=== PATIENT | male | born 1970 | race Caucasian/White ===

== ENCOUNTER 2016-09-03 15:38 | Observation (INO) ==
[2016-09-03] MEDS ORDERED: *HR* LORazepam 2 MG/ML VIAL IVP ONE ×2 (16:27→18:56)
--- NOTE | 2016-09-03 16:34 | Emergency Department Note ---
Addendum entered and electronically signed by Sherly Fine DO 09/03/16 19:11: I spoke with hospitalist Dr. Younger who states he refuses the admission. He will come see the patient down in the emergency department and discharge him himself. Original Note: Disposition Clinical Impression: Acute anxiety Chest pain Qualifiers: Chest pain type: precordial pain Qualified Code(s): R07.2 - Precordial pain Disposition: Admitted As Inpatient Condition: Fair Time of Disposition: 18:56 General Adult HPI - General Chief complaint: ED Psychiatric Symptoms Stated complaint: Panic attack, SOB Time Seen by Provider: 09/03/16 16:02 Source: patient Mode of arrival: ambulatory Limitations: no limitations Nursing Notes Reviewed: Yes Vital Signs Reviewed: Yes - History of Present Illness HPI Narrative: Patient is a 46-year-old male who presents to [facility] ED with a chief complaint of panic attacks since this morning. States he had a few episodes of vomiting early this morning and defecated himself. He woke up around 9 AM and started having the panic attack. He feels shortness of breath along with chest pressure. He has intermittent chest pains that are sharp and stabbing in nature. Denies any prior cardiac history. Has had a nuclear stress test within the last year that was normal. Past medical history significant for type 2 diabetes [id number], morbid obesity, hypertension, hyperlipidemia. The patient states he also has burning in his feet from neuropathy. However he was cleaning the floor with [place] and feels that he may have stepped into the [place] which could be contributing to the burning as well. Patient states he does have some nausea, no further vomiting today. Patient states his panic attacks usually only lasts for approximately 20 minutes at the most though this one has lasted for hours. Onset (ago): hour(s) Location: chest Radiation: non-radiation Pain Severity: moderate Pain Scale: 0 Quality: stabbing Consistency: intermittent Improves with: nothing Worsens with: nothing Associated symptoms: Reports: chest pain, nausea/vomiting, shortness of breath. Denies: cough Treatments Prior to Arrival: none - Related Data Home Medications Medication Instructions Recorded Confirmed Acyclovir [Zovirax] 400 mg PO BID PRN 06/12/15 09/03/16 Albuterol Sulfate [Proair Hfa] 2 puff IH Q4H PRN 06/12/15 09/03/16 Benztropine [Cogentin] 0.5 mg PO BID 06/12/15 09/03/16 Canagliflozin [Invokana] 300 mg PO QAM 06/12/15 09/03/16 Gabapentin [Neurontin] 600 mg PO TID 06/12/15 09/03/16 Glimepiride [Amaryl] 8 mg PO QAM 06/12/15 09/03/16 Metformin HCl [Glucophage] 1,000 mg PO BID 06/12/15 09/03/16 Pantoprazole Sodium [Protonix] 20 mg PO QPM 06/12/15 09/03/16 Ropinirole HCl [Requip] 8 mg PO HS 06/12/15 09/03/16 diazePAM [Valium] 5 mg PO DAILY PRN 06/12/15 09/03/16 Aspirin 81 mg PO DAILY 06/23/16 09/03/16 Betamethasone Rekha 0.1% Crm 1 appl TP BID 06/23/16 09/03/16 [Valisone 0.1%] Ezetimibe [Zetia] 10 mg PO DAILY 06/23/16 09/03/16 Fluocinolone Acetonide [Capex 1 appl TP DAILY PRN 06/23/16 09/03/16 Shampoo] Furosemide [Lasix] 40 mg PO DAILY 06/23/16 09/03/16 Loratadine [Allergy Relief] 10 mg PO DAILY 06/23/16 09/03/16 Losartan [Cozaar] 25 mg PO DAILY 06/23/16 09/03/16 Potassium Chloride [Klor-Con 10] 10 meq PO BID 06/23/16 09/03/16 Ziprasidone HCl [Geodon] 40 mg PO QPM 06/23/16 09/03/16 Meloxicam [Mobic] 15 mg PO DAILY 09/03/16 09/03/16 Ziprasidone HCl [Geodon] 20 mg PO QAM 09/03/16 09/03/16 Allergies Allergy/AdvReac Type Severity Reaction Status Date / Time lisinopril AdvReac Cough Verified 06/23/16 08:38 All systems ED: reviewed and negative except as stated. Past Medical History - Past Medical History Attestation: Yes The following information was validated with the patient. Source: patient Medical history: Reports: diabetes, hyperlipidemia, hypertension, kidney stones Surgical history: Reports: other Psychiatric history: Reports: anxiety, bipolar, depression - Social History Smoking Status: Former smoker Smokeless Tobacco Status: No Alcohol use: Reports: rarely, recent Drug use: Reports: none Physical Exam - General Limitations: no limitations General appearance: alert, in no apparent distress - Head Head exam: atraumatic, normocephalic, normal inspection - Eye Eye exam: Present: normal appearance, PERRL, EOMI - ENT ENT exam: normal exam, normal oropharynx, mucous membranes moist - Neck Neck exam: Present: normal inspection, full ROM, trachea midline - Chest Chest inspection: Present: normal inspection, symmetric chest wall rise - Respiratory Respiratory exam: Present: normal lung sounds bilaterally - Cardiovascular Cardiovascular exam: Present: normal rhythm, tachycardia, normal heart sounds - Abdominal Exam Abdominal exam: Present: soft, Non-Tender. Absent: tenderness, distention, guarding, rebound, rigidity - Extremities Exam Extremities exam: Present: normal inspection, full ROM. Absent: tenderness, pedal edema - Back Exam Back exam: Present: normal inspection, full ROM. Absent: tenderness - Neurological Exam Neurological exam: Present: alert, oriented X3 - Psychiatric Psychiatric exam: Present: normal affect, normal mood - Skin Skin exam: Present: warm, dry, intact, normal color Course Course Narrative: Patient seen and examined. Patient is very anxious and has some hyperventilation. We will give him 1 mg of Ativan and reassess. Due to his symptoms of chest pressure and shortness of breath and has multiple cardiac risk factors, we will do a cardiac workup. - Reevaluation(s) Reevaluation #1: Patient has continued to feel anxious. Had onset of chest pain again feels heaviness in his chest. We will give a dose of nitroglycerin and recheck an EKG. I spoke with patient about possible admission for cardiac workup. The patient did have a recent stress test 2 months ago, however has never had a heart catheterization. He does have multiple risk factors for coronary artery disease including hyperlipidemia, type 2 diabetes, hypertension. Patient agrees with this plan. Time: 18:52 Reevaluation #2: I spoke with hospitalist Meeta Badillo who would like us to talk with cardiology. I spoke with pipe stem repairer Dr. Jung who states they will see the patient in consult tomorrow. Patient has been admitted to hospitalist service. Time: 19:07 Vital Signs Temperature 98.3 F 09/03/16 15:56 Pulse Rate 108 09/03/16 15:56 Respiratory Rate 24 09/03/16 15:56 Blood Pressure 138/81 09/03/16 15:56 O2 Sat by Pulse Oximetry 97 09/03/16 15:56 Temperature 98.6 F 09/04/16 02:34 Pulse Rate 93 09/04/16 02:34 Respiratory Rate 18 09/04/16 02:34 Blood Pressure 122/69 09/04/16 02:34 O2 Sat by Pulse Oximetry 93 09/04/16 02:34 Oxygen Delivery Oxygen Delivery Nasal Cannula Medical Decision Making - Medical Records Medical records reviewed: Yes I reviewed the patient's medical records. - Lab Data Lab results reviewed: Yes I reviewed the patient's lab results. Result diagrams: 09/04/16 03:13 09/04/16 03:13 Lab Results 09/03/16 09/03/16 09/03/16 Range/Units 16:59 16:59 16:59 WBC 9.1 (4.3-11.1) K/mcL RBC 4.52 (4.19-5.50) M/mcL Hgb 13.8 (12.9-16.9) g/dL Hct 39.9 (37.5-50.1) % MCV 88.3 (83.0-100.0) fL MCH 30.5 (28.0-33.3) pg MCHC 34.6 (31.6-35.5) g/dL RDW 13.1 (11.5-14.5) % Plt Count 274 (140-400) K/mcL MPV 8.2 L (9.4-12.4) fL Immature Gran % 1.3 (0-4) % Seg Neutrophils % 71.9 % Lymphocytes % 18.1 % Monocytes % 7.8 % Eosinophils % 0.6 % Basophils % 0.3 % Neutrophils # 6.5 (1.6-8.9) K/mcL Lymphocytes # 1.6 (0.6-4.6) K/mcL Monocytes # 0.7 (0.0-1.3) K/mcL Eosinophils # 0.1 (0.0-0.6) K/mcL Basophils # 0.0 (0.0-0.2) K/mcL Immature Plt Fraction 1.0 L (1.1-6.1) % Sodium 136 (136-145) mEq/L Potassium 3.4 L (3.5-4.5) mEq/L Chloride 103 (98-109) mEq/L Carbon Dioxide 18 L (19-29) mEq/L BUN 18 (8-26) mg/dL Creatinine 1.01 (0.72-1.25) mg/dL Est GFR ( Amer) > 60 (> 60) Est GFR (Non-Af Amer) > 60 (> 60) BUN/Creatinine Ratio 18 (6-26) Glucose 177 H (70-99) mg/dL Calculated Osmolality 288 (280-300) Calcium 9.4 (8.6-10.8) mg/dL Troponin I 0.00 (0-0.03) ng/mL - Radiology Data Radiology results reviewed: Yes I reviewed the patient's radiology results. Chest X-Ray 09/03/16 16:28 IMPRESSION: No acute cardiopulmonary process. D/ / 09/03/2016 18:06:11 Floyd Lazcano MD / [facility] Interpreting Provider: Floyd Lazcano MD - EKG Data EKG #1 EKG attestation: Yes I reviewed and interpreted this EKG. EKG results narrative: EKG done at 1641 shows normal sinus rhythm with a rate of [address] elevation or depression. Poor wandering baseline. Normal axis. Unchanged from prior EKG done 06/24/2016. EKG #2 EKG attestation: Yes I reviewed and interpreted this EKG. EKG results narrative: EKG done at 1853 shows normal sinus rhythm with a rate of [address] elevation or depression. Normal axis. Unchanged from prior EKG. Attestation Statement - Attestation Attestation: I, Baltazar Otero, examined this patient and my medical decision-making was reviewed with the OPTICAL INSTRUMENT REPAIRER/PA/Advanced Practice Nurse/Resident Physician. I agree with the documented findings, disposition and treatment plan as described except to the extent set forth below. 46-year-old male presents with multiple concerns. Patient reports he drank a large amount of alcohol, became incontinent of stool, tried to clean up this morning with [place] on the ground, he used his feet to remove the [place] around on the ground and then became anxious because he had a feeling of tingling on his feet. Patient has a history of chronic neuropathy and is being treated at a pain clinic for this and is also taking gabapentin at home. Patient is unsure if the tingling in his feet today is his chronic tingling or if this is new. Patient states when he became anxious he developed panic attack similar to his previous panic attacks however this has lasted much longer than his previous ones. Patient states his symptoms have improved after observation in the emergency department however during his stay in the emergency department he soon developed recurrent chest pain, holding his chest and having difficulty in breathing. Patient has a history of diabetes and hypertension however he did have a stress test within the past 3 months which was within normal limits per the patient. Patient had initial negative troponin and EKG showed normal sinus rhythm with a rate of 97. Repeat EKG on recurrent chest pain showed normal sinus rhythm with a rate of 96 without evidence of STEMI. Due to the patient's risk factors he will be admitted to the hospital for observation and serial troponins. Patient felt comfortable with this plan. Patient was admitted to the hospitalist for further care.
[2016-09-03 17:05] LABS: Basophils % 0.3 %; Eosinophils # 0.1 K/mcL (0.0-0.6); Eosinophils % 0.6 %; Hematocrit 39.9 % (37.5-50.1); Hemoglobin 13.8 g/dL (12.9-16.9); Immature Granulocytes % 1.3 % (0-4); Lymphocytes # 1.6 K/mcL (0.6-4.6); Lymphocytes % 18.1 %; Mean Corpuscular HGB Conc 34.6 g/dL (31.6-35.5); Mean Corpuscular Hemoglobin 30.5 pg (28.0-33.3); Mean Corpuscular Volume 88.3 fL (83.0-100.0); Mean Platelet Volume 8.2 fL (9.4-12.4); Monocytes # 0.7 K/mcL (0.0-1.3); Monocytes % 7.8 %; Neutrophils # 6.5 K/mcL (1.6-8.9); Platelet Count 274 K/mcL (140-400); Red Blood Count 4.52 M/mcL (4.19-5.50); Red Cell Distribution Width 13.1 % (11.5-14.5); Segmented Neutrophils % 71.9 %
[2016-09-03 17:16] LABS: BUN/Creatinine Ratio 18 (6-26); Blood Urea Nitrogen 18 mg/dL (8-26); Calcium 9.4 mg/dL (8.6-10.8); Carbon Dioxide 18 mEq/L (19-29); Chloride 103 mEq/L (98-109); Glucose 177 mg/dL (70-99); Osmolality,Calculated 288 (280-300); Potassium 3.4 mEq/L (3.5-4.5); Sodium 136 mEq/L (136-145); eGFR For African Americans > 60 (> 60); eGFR For Non-African Americans > 60 (> 60)
[2016-09-03] MEDS ORDERED: 0.9 % Sodium Chloride 1,000 ML IVC ONE (17:25)
[2016-09-03] MEDS ORDERED: Ondansetron 4 MG/2 ML VIAL IVP ONE (17:56)
[2016-09-03] MEDS ORDERED: Nitroglycerin 0.4 MG TAB.SUBL SL PRN ×3 (17:56→20:10)
[2016-09-03] MEDS ORDERED: *HR* Morphine 2 MG/ML SYRINGE IVP ONE (17:56)
[2016-09-03] MEDS ORDERED: Nitroglycerin 0.4 MG TAB.SUBL SL ONE (18:49)
[2016-09-03] MEDS ORDERED: Aspirin 81 MG TAB.CHEW PO STA (19:14)
[2016-09-03] MEDS ORDERED: Acetaminophen 325 MG TABLET PO PRN (19:57)
[2016-09-03] MEDS ORDERED: Ondansetron 4 MG/2 ML VIAL IVP PRN (19:57)
[2016-09-03] MEDS ORDERED: Naloxone 0.4 MG/ML INJ IVP PRN (19:57)
--- NOTE | 2016-09-03 20:36 | Internal Med History&Physical ---
Date of Encounter: 09/03/16 Time of Encounter: 20:34 Assessment and Plan (1) Chest pain Current visit: Yes Status: Acute Pt. with SOB after alcohol intake Also has chest tightness. Stress test last year negative Place under observation. Telemetry. Cycle troponins. ECHO 2 months ago with preserved EF Cardio consult NTG SL PRN Qualifiers: Chest pain type: precordial pain Qualified Code(s): R07.2 - Precordial pain (2) Asthma Current visit: Yes Status: Chronic Breathing treatments PRN Not in acute exacerbation Qualifiers: Asthma severity: mild intermittent Asthma complication type: uncomplicated Qualified Code(s): J45.20 - Mild intermittent asthma, uncomplicated (3) Diabetes Current visit: Yes Status: Chronic Continue home regimen SSI Stable Qualifiers: Diabetes mellitus type: type 2 Diabetes mellitus complication status: without complication Diabetes mellitus meterman insulin use: without usp use Qualified Code(s): E11.9 - Type 2 diabetes mellitus without complications (4) SANDEE (obstructive sleep apnea) Current visit: Yes Status: Chronic Home BIPAP setting of based on his sleep study in 01/2016 (5) HTN (hypertension) Current visit: Yes Status: Chronic Controlled. Home meds Qualifiers: Hypertension type: essential hypertension Qualified Code(s): I10 - Essential (primary) hypertension Internal Medicine - H&P: HPI Chief complaint: Shortness of breath and chest tightness Admitted From: Emergency Dept Plans for Post Hospital Care: Home History of present illness: Mr. Cartwright is a 46 year old male with a history of asthma who presents to the hospital due to shortness of breath and chest tightness. Patient has a chronic history of chest pains for which she underwent a stress test in May 2015 which was negative for reversible ischemia. He also underwent an echocardiogram about 2 months ago which was normal. Patient states that he does not consume alcohol regularly but usually takes 4-6 beers 2 times a month. He states that last night he had about half a gallon of hard liquor and immediately after drinking it, he vomited and also had bowel incontinence. He states that he later fell asleep. Today morning when he woke up, he had a hangover. He also had shortness of breath which continued to get worse. He states that on top of that, he wanted to clean his house and used [place] and water to clean it. He believes that the chemicals might have irritated his lungs and made his shortness of breath worse. He states that he used breathing treatments around 12 PM today. Then, he called EMS. He got another breathing treatment at 3 PM which partially helped. He was brought to the emergency report in. He was given nitroglycerin which provided partial relief. He also reports chest tightness that 2/10 in intensity without any radiation that is in the middle of the chest without any aggravating or relieving factors. Notices it with sweating or nausea. Reports intermittent palpitations. He does report lightheadedness since consuming alcohol yesterday. Past Med Surg Social Fam HX - Past Medical History Attestation: Yes The following information was validated with the patient. Source: patient Medical history: diabetes, hyperlipidemia, hypertension, kidney stones, other ( SANDEE) Psychiatric history: anxiety, bipolar, depression - Past Surgical History Surgical History: other (Circumcision ) - Social History Smoking Status: Former smoker Smokeless Tobacco Status: No Alcohol use: rarely, recent Drug use: none Current living situation: Home, With Family Activity Level: Independent ambulation Recent Out of Country Travel Within the Last 8 Weeks: No Exposure or Possible Exposure to Illness During Travel: No - Family History Father Living Status: Still Living Hx Family Cardiac Disorders: Yes Internal Medicine - H&P: Meds Acyclovir [Zovirax] 400 mg PO BID PRN 06/12/15 [History] Albuterol Sulfate [Proair Hfa] 2 puff IH Q4H PRN 06/12/15 [History] Benztropine [Cogentin] 0.5 mg PO BID 06/12/15 [History] Canagliflozin [Invokana] 300 mg PO QAM 06/12/15 [History] Gabapentin [Neurontin] 600 mg PO TID 06/12/15 [History] Glimepiride [Amaryl] 4 mg PO QAM 06/12/15 [History] Meloxicam [Mobic] 7.5 mg PO QAM 06/12/15 [History] Metformin HCl [Glucophage] 1,000 mg PO BID 06/12/15 [History] Pantoprazole Sodium [Protonix] 20 mg PO QPM 06/12/15 [History] Ropinirole HCl [Requip] 8 mg PO HS 06/12/15 [History] diazePAM [Valium] 5 mg PO DAILY PRN 06/12/15 [History] Ammonium Lactate [Rosa-Hydrolac] 1 appl TP BID 06/23/16 [History] Aspirin 81 mg PO DAILY 06/23/16 [History] Betamethasone Rekha 0.1% Crm [Valisone 0.1%] 1 appl TP BID 06/23/16 [History] Calcipotriene [Dovonex] 1 appl TP DAILY PRN 06/23/16 [History] Ezetimibe [Zetia] 10 mg PO DAILY 06/23/16 [History] Fluocinolone Acetonide [Capex Shampoo] 1 appful TP DAILY PRN 06/23/16 [History] Furosemide [Lasix] 40 mg PO DAILY 06/23/16 [History] Loratadine [Allergy Relief] 10 mg PO DAILY 06/23/16 [History] Losartan [Cozaar] 25 mg PO DAILY 06/23/16 [History] Potassium Chloride [Klor-Con 10] 10 meq PO BID 06/23/16 [History] Triamcinolone Acet 0.1% CRM [Kenalog] 1 appl TP BID 06/23/16 [History] Ziprasidone HCl [Geodon] 40 mg PO BID 06/23/16 [History] Allergies lisinopril Adverse Reaction (Verified 06/23/16 08:38) Cough All Systems PM: A 10-system review of systems was performed and is negative for pertinent findings except as documented above in the HPI. Review of systems: 10 systems have been reviewed and are negative except as mentioned in the history of present illness - Constitutional Vitals: Temp Pulse Resp BP Pulse Ox 98.3 F 95 16 117/78 96 09/03/16 15:56 09/03/16 20:21 09/03/16 20:21 09/03/16 20:21 09/03/16 20:21 Exam: Gen.: Lying in bed. Mild to moderate distress. Eyes: Pupils equal, round and reactive to light. Extraocular muscles intact. ENT: Moist mucous membranes. No oropharyngeal erythema or discharge. Chest: Clear to auscultation bilaterally. No adventitious sounds present. CVS: First and second heart sounds present. No murmurs, rubs or gallops. Mild tachycardia present. Abdomen: Soft, nontender, obese. Bowel sounds present. No hepatosplenomegaly. Skin: No decubitus ulcers appreciated. Chronic venous stasis changes in bilateral lower expertise. Psoriatic lesions on bilateral knees. ROOF PLUMBER: No focal neuro deficits present. Psychiatric: Alert, awake and oriented to time, place and person. Lymphatic system: No lymphadenopathy appreciated Internal Med - H&P Results - Labs CBC & Chem 7: 09/03/16 16:59 09/03/16 16:59 - EKG Data -: EKG Interpreted by Myself EKG shows normal: sinus rhythm Rate: tachycardia - Diagnostic Studies Chest x-ray Status: image reviewed by me (No acute infiltrates seen)
[2016-09-03] MEDS ORDERED: Ipratropium/Albuterol Neb 3 ML IH PRN (20:45)
[2016-09-03] MEDS ORDERED: diazePAM 5 MG TABLET PO PRN (22:12)
[2016-09-03] MEDS ORDERED: Acyclovir 200 MG CAPSULE PO PRN (22:12)
[2016-09-03] MEDS ORDERED: FLUOCINOLONE TP PRN (22:12)
[2016-09-03] MEDS ORDERED: *HR* Dextrose 50 % in Water (Syg) 50 ML SYRINGE IVP PRN (22:14)
[2016-09-03] MEDS ORDERED: D5% in Water 1,000 ML IVC PRN (22:14)
[2016-09-03] MEDS ORDERED: Dextrose Gel 15 GM PO PRN ×2 (22:14)
[2016-09-03] MEDS ORDERED: rOPINIRole 1 MG TABLET PO SCH (22:15)
[2016-09-03] MEDS ORDERED: Ziprasidone 20 MG CAPSULE PO SCH (22:15)
[2016-09-03] MEDS: Gabapentin 300 MG CAPSULE PO SCH (23:53)
[2016-09-04 04:23] LABS: Basophils % 0.3 %; Eosinophils # 0.1 K/mcL (0.0-0.6); Hematocrit 38.6 % (37.5-50.1); Hemoglobin 13.1 g/dL (12.9-16.9); Lymphocytes # 1.7 K/mcL (0.6-4.6); Lymphocytes % 22.8 %; Mean Corpuscular HGB Conc 33.9 g/dL (31.6-35.5); Mean Corpuscular Hemoglobin 30.7 pg (28.0-33.3); Mean Corpuscular Volume 90.4 fL (83.0-100.0); Mean Platelet Volume 8.9 fL (9.4-12.4); Monocytes # 0.6 K/mcL (0.0-1.3); Monocytes % 7.3 %; Neutrophils # 5.1 K/mcL (1.6-8.9); Platelet Count 196 K/mcL (140-400); Red Blood Count 4.27 M/mcL (4.19-5.50); Red Cell Distribution Width 13.5 % (11.5-14.5); Segmented Neutrophils % 67.6 %
[2016-09-04 04:38] LABS: Alanine Aminotransferase 58 Units/L (0-55); Albumin 3.6 g/dL (3.5-5.0); Alkaline Phosphatase 79 Units/L (38-126); Aspartate Amino Transferase 39 Units/L (5-34); BUN/Creatinine Ratio 19 (6-26); Bilirubin,Total 0.9 mg/dL (0.2-1.2); Blood Urea Nitrogen 21 mg/dL (8-26); Calcium 9.1 mg/dL (8.6-10.8); Carbon Dioxide 23 mEq/L (19-29); Chloride 103 mEq/L (98-109); Globulin 3.7 g/dL (2.4-3.5); Glucose 221 mg/dL (70-99); Osmolality,Calculated 296 (280-300); Potassium 3.3 mEq/L (3.5-4.5); Sodium 138 mEq/L (136-145); Total Protein 7.3 g/dL (6.0-8.3); eGFR For African Americans > 60 (> 60); eGFR For Non-African Americans > 60 (> 60)
[2016-09-04] MEDS ORDERED: *HR* Metformin 500 MG TABLET PO SCH (08:00)
[2016-09-04] MEDS: Insulin LISPRO 300 UNITS/3 ML VIAL SQ SCH ×2 (08:27→11:51)
[2016-09-04] MEDS: Gabapentin 300 MG CAPSULE PO SCH (08:29)
[2016-09-04] MEDS ORDERED: (Ezetimibe [Zetia] 10 MG) PO SCH (09:00)
[2016-09-04] MEDS ORDERED: Ziprasidone 20 MG CAPSULE PO SCH (09:00)
[2016-09-04] MEDS ORDERED: Furosemide 40 MG TABLET PO SCH (09:00)
[2016-09-04] MEDS ORDERED: *HR* Glimepiride 4 MG TABLET PO SCH ×2 (09:00)
[2016-09-04] MEDS ORDERED: Loratadine 10 MG TABLET PO SCH (09:00)
[2016-09-04] MEDS ORDERED: (Canagliflozin [Invokana] 300 MG) PO SCH (09:00)
[2016-09-04] MEDS ORDERED: Aspirin Enteric Coated 81 MG Tablet PO SCH (09:00)
[2016-09-04 11:14] VITALS: BP 119/67
--- NOTE | 2016-09-04 12:14 | Discharge Summary ---
Date of Encounter: 09/04/16 Time of Encounter: 12:11 - Discharge Diagnosis (1) Chest pain Priority: Primary Status: Acute Qualifiers: Chest pain type: unspecified Qualified Code(s): R07.9 - Chest pain, unspecified (2) Diabetes Priority: Secondary Status: Chronic Qualifiers: Diabetes mellitus type: type 2 Diabetes mellitus complication status: without complication Diabetes mellitus jail insulin use: without jail use Qualified Code(s): E11.9 - Type 2 diabetes mellitus without complications (3) SANDEE (obstructive sleep apnea) Priority: Secondary Status: Chronic (4) HTN (hypertension) Priority: Secondary Status: Chronic Qualifiers: Hypertension type: essential hypertension Qualified Code(s): I10 - Essential (primary) hypertension - Discharge Medications Home Medications: Acyclovir [Zovirax] 400 mg PO BID PRN 06/12/15 [History] Albuterol Sulfate [Proair Hfa] 2 puff IH Q4H PRN 06/12/15 [History] Benztropine [Cogentin] 0.5 mg PO BID 06/12/15 [History] Canagliflozin [Invokana] 300 mg PO QAM 06/12/15 [History] Gabapentin [Neurontin] 600 mg PO TID 06/12/15 [History] Glimepiride [Amaryl] 8 mg PO QAM 06/12/15 [History] Metformin HCl [Glucophage] 1,000 mg PO BID 06/12/15 [History] Pantoprazole Sodium [Protonix] 20 mg PO QPM 06/12/15 [History] Ropinirole HCl [Requip] 8 mg PO HS 06/12/15 [History] diazePAM [Valium] 5 mg PO DAILY PRN 06/12/15 [History] Aspirin 81 mg PO DAILY 06/23/16 [History] Betamethasone Rekha 0.1% Crm [Valisone 0.1%] 1 appl TP BID 06/23/16 [History] Ezetimibe [Zetia] 10 mg PO DAILY 06/23/16 [History] Fluocinolone Acetonide [Capex Shampoo] 1 appl TP DAILY PRN 06/23/16 [History] Furosemide [Lasix] 40 mg PO DAILY 06/23/16 [History] Loratadine [Allergy Relief] 10 mg PO DAILY 06/23/16 [History] Losartan [Cozaar] 25 mg PO DAILY 06/23/16 [History] Potassium Chloride [Klor-Con 10] 10 meq PO BID 06/23/16 [History] Ziprasidone HCl [Geodon] 40 mg PO QPM 06/23/16 [History] Meloxicam [Mobic] 15 mg PO DAILY 09/03/16 [History] Ziprasidone HCl [Geodon] 20 mg PO QAM 09/03/16 [History] Allergies/Adverse Reactions: Allergies lisinopril Adverse Reaction (Verified 06/23/16 08:38) Cough Date of admission: 09/03/16 19:59 Primary care physician: PCP NO Discharging clinician: Tyson Gomez Anticipated date of discharge: 09/04/16 - Patient Status Disposition: Home, Self-Care Condition: Fair Functional capacity at discharge: independent ambulation Overall status at discharge: patient is back to baseline - Discharge Instructions Follow Up With: Hermilo Lugo CNP [Advanced Practice Nurse] - 09/09/16 2:00 pm - Diet and Activity Activity: resume usual activities as tolerated Diet: advance to your usual diet Interval History: Mr. Cartwright is a 46 year old male with a history of asthma who presents to the hospital due to shortness of breath and chest tightness. Patient has a chronic history of chest pains for which she underwent a stress test in May 2015 which was negative for reversible ischemia. He also underwent an echocardiogram about 2 months ago which was normal. Patient states that he does not consume alcohol regularly but usually takes 4-6 beers 2 times a month. He states that last night he had about half a gallon of hard liquor and immediately after drinking it, he vomited and also had bowel incontinence. he also had some sob and called [facility] [employer]. HE was admitted for chest pain and sob for observation overnight EKG and trop has been negative, no more chest pain or sob, hemodynamically stable discussed with cardiology, no signs of ACS at this time kiara can be dc home today and f/u as OP.HE was advised to avoid binge drinking/ Hospital course: Mr. Cartwright is a 46 year old male - Time Spent with Patient Total time spent providing and/or coordinating discharge services: - Constitutional Vitals: Temp Pulse Resp BP Pulse Ox 97.9 F 82 15 119/67 96 09/04/16 11:07 09/04/16 11:07 09/04/16 11:07 09/04/16 11:07 09/04/16 11:07 General appearance: Present: A&O X 3, no acute distress Exam: Gen.: Lying in bed. Mild to moderate distress. Eyes: Pupils equal, round and reactive to light. Extraocular muscles intact. ENT: Moist mucous membranes. No oropharyngeal erythema or discharge. Chest: Clear to auscultation bilaterally. No adventitious sounds present. CVS: First and second heart sounds present. No murmurs, rubs or gallops. Mild tachycardia present. Abdomen: Soft, nontender, obese. Bowel sounds present. No hepatosplenomegaly. Skin: No decubitus ulcers appreciated. Chronic venous stasis changes in bilateral lower expertise. Psoriatic lesions on bilateral knees. HYDROCRANE OPERATOR: No focal neuro deficits present. Psychiatric: Alert, awake and oriented to time, place and person. Lymphatic system: No lymphadenopathy appreciated
[2016-09-04] MEDS ORDERED: Insulin LISPRO 300 UNITS/3 ML VIAL SQ SCH (21:00)
--- NOTE | 2016-09-05 08:56 | Electrocardiograph Report ---
[place] [id number] Test Date: 2016-09-03 Pat Name: Juancarlos Cartwright Department: 105 Room: 3A31 Gender: M Entry Level Web Developer: : 1970 Requested By: Sherly Fine Order Number: [id number] Reading MD: Mookie Vieyra DO Measurements Intervals [place] Rate: 97 P: 49 CO: 157 QRS: 5 QRSD: 100 T: 24 QT: 380 QTc: 434 Interpretive Statements SINUS RHYTHM Electronically Signed On 09-05-2016 8:54:25 EDT by Mookie Vieyra DO
--- NOTE | 2016-09-05 09:02 | Electrocardiograph Report ---
[place] [id number] Test Date: 2016-09-03 Pat Name: Juancarlos Cartwright Department: 105 Room: 3A Gender: M Assurance Manager Insurance: : 1970 Requested By: Sherly Fine Order Number: [id number] Reading MD: Mookie Vieyra DO Measurements Intervals [place] Rate: 96 P: 24 VA: 170 QRS: 3 QRSD: 106 T: 20 QT: 376 QTc: 429 Interpretive Statements SINUS RHYTHM Electronically Signed On 09-05-2016 9:00:19 EDT by Mookie Vieyra DO
== END 2016-09-04 14:06 | disposition home or self-care (01) ==
LOC: EMEROO 15:38 → 3ANU 15:38
PROVIDERS: ADMIT Internal Medicine Sleep Medicine; ATTEND Internal Medicine Endocrinology, Diabetes & Metabolism

== ENCOUNTER 2017-08-25 16:17 | Observation (INO) ==
[2017-08-25] MEDS ORDERED: Aspirin 81 MG TAB.CHEW PO ONE (16:20)
--- NOTE | 2017-08-25 16:23 | Emergency Department Note ---
Disposition Clinical Impression: Chest pain Qualifiers: Chest pain type: unspecified Qualified Code(s): R07.9 - Chest pain, unspecified Disposition: Admitted As Inpatient Condition: Good Forms: ED Satisfaction Letter Time of Disposition: 18:16 Chest Pain HPI - General Chief Complaint: ED Chest Pain Stated Complaint: chest pain Time Seen by Provider: 08/25/17 16:19 Source: patient, EMS Mode of arrival: EMS Limitations: no limitations Vital Signs Reviewed: Yes Nursing Notes Reviewed: Yes - History of Present Illness HPI Narrative: 47-year-old male with multiple risk factors who comes in from the urgent care after developing chest pain. Patient was being seen for routine follow-up developed chest pain while in the lobby. Patient was given aspirin and nitroglycerin with resolution of his pain. Patient has multiple risk factors including hypertension, hypercholesterolemia, Ngoc family history. Patient stopped smoking 3 years ago. 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 Duration: now resolved Onset: during rest Pain Location: substernal, left chest Severity: moderate Quality: tightness, aching, heaviness Pain Radiation: none Improves with: nitroglycerin Worsens with: nothing Treatments prior to arrival chest pain: none - Related Data Home Medications Medication Instructions Recorded Confirmed Acyclovir [Zovirax] 400 mg PO BID PRN 06/12/15 05/04/17 Albuterol Sulfate [Proair Hfa] 2 puff IH Q4H PRN 06/12/15 05/04/17 Benztropine [Cogentin] 0.5 mg PO BID 06/12/15 05/04/17 Canagliflozin [Invokana] 300 mg PO QAM 06/12/15 05/04/17 Glimepiride [Amaryl] 8 mg PO QAM 06/12/15 05/04/17 Metformin HCl [Glucophage] 1,000 mg PO BID 06/12/15 05/04/17 Pantoprazole Sodium [Protonix] 20 mg PO QPM 06/12/15 05/04/17 Ropinirole HCl [Requip] 4 mg PO HS 06/12/15 05/04/17 diazePAM [Valium] 5 mg PO DAILY PRN 06/12/15 05/04/17 Aspirin 81 mg PO DAILY 06/23/16 05/04/17 Ezetimibe [Zetia] 10 mg PO DAILY 06/23/16 05/04/17 Furosemide [Lasix] 40 mg PO DAILY 06/23/16 05/04/17 Loratadine [Allergy Relief] 10 mg PO DAILY 06/23/16 05/04/17 Losartan [Cozaar] 25 mg PO DAILY 06/23/16 05/04/17 Potassium Chloride [Klor-Con 10] 10 meq PO BID 06/23/16 05/04/17 Ziprasidone HCl [Geodon] 60 mg PO BID 06/23/16 05/04/17 Meloxicam [Mobic] 15 mg PO DAILY 09/03/16 05/04/17 Liraglutide [Victoza 2-Gen] 1.8 mg PO DAILY 03/16/17 05/04/17 Budesonide/Formoterol 80/4.5 2 puff IH BID 05/04/17 05/04/17 [Symbicort 80/4.5] Pregabalin [Lyrica] 100 mg PO TID 05/04/17 05/04/17 Previous Rx's Medication Instructions Recorded HYDROcodone/Acet 7.5/325 mg [[place] 1 tab PO Q4-6H PRN 7 Days #28 05/04/17 7.5-325 mg] tablet Levothyroxine [Synthroid] 150 mcg PO 0630 #30 tablet 05/04/17 Lidocaine HCl [Lidocaine HCl 1 ml MM Q3-4H PRN #1 bottle 07/14/17 Viscous] Penicillin VK 500 mg PO QID #40 tablet 07/14/17 Allergies Allergy/AdvReac Type Severity Reaction Status Date / Time lisinopril AdvReac Cough Verified 07/14/17 17:19 sulfamethoxazole AdvReac See Verified 07/14/17 17:19 [From Bactrim] Comments trimethoprim [From Bactrim] AdvReac See Verified 07/14/17 17:19 Comments All systems ED: reviewed and negative except as stated. Constitutional: Denies: fever, chills, weakness, weight change Eyes: Denies: eye pain, eye discharge, vision change ENT ED: Denies: ear pain, throat pain, dental pain, hearing loss, epistaxis, congestion, dysphagia Cardiovascular: Reports: chest pain. Denies: palpitations, dyspnea on exertion , edema, syncope Respiratory: Denies: cough, dyspnea, wheezes, hemoptysis, stridor Gastrointestinal: Denies: abdominal pain, nausea, vomiting, diarrhea, constipation, hematemesis, melena, hematochezia Genitourinary: Denies: urgency, dysuria, frequency, hematuria Musculoskeletal: Denies: back pain, neck pain, arthralgia, myalgia Integumentary: Denies: rash, abrasion, lesions Neurological: Denies: headache, weakness, numbness, paresthesias, confusion, abnormal gait, vertigo Psychiatric: Denies: anxiety, depression, suicidal thoughts, homicidal thoughts , auditory hallucinations, visual hallucinations Endocrine: Denies: fatigue Hematological/Lymphatic: Denies: easy bleeding, easy bruising Allergic/Immunologic: Denies: facial swelling, urticaria Chest Pain PMH - Past Medical History Medical history: Reports: non-contributory Surgical history: Reports: other Psychiatric history: Reports: anxiety, bipolar, depression Prior Cardiac Testing/Procedures: Stress Test (cant see report in system) - Social History Smoking Status: Never smoker Alcohol use: Reports: none Drug use: Reports: none Physical Exam - General Limitations: no limitations General appearance: alert, in no apparent distress - Head Head exam: atraumatic, normocephalic, normal inspection - Eye Eye exam: Present: normal appearance, PERRL, EOMI - ENT ENT exam: normal exam, normal oropharynx, mucous membranes moist - Neck Neck exam: Present: normal inspection, full ROM, trachea midline - Chest Chest inspection: Present: normal inspection, symmetric chest wall rise - Respiratory Respiratory exam: Present: normal lung sounds bilaterally - Cardiovascular Cardiovascular exam: Present: regular rate, normal rhythm, normal heart sounds - Abdominal Exam Abdominal exam: Present: soft, Non-Tender. Absent: tenderness, distention, guarding, rebound, rigidity - Extremities Exam Extremities exam: Present: normal inspection, full ROM. Absent: tenderness, pedal edema - Expanded Lower Extremity Exam Neurovascular/Tendon exam: Absent: motor deficit, sensory deficit, tendon deficit - Back Exam Back exam: Present: normal inspection, full ROM. Absent: tenderness - Neurological Exam Neurological exam: Present: alert, oriented X3 - Psychiatric Psychiatric exam: Present: normal affect, normal mood - Skin Skin exam: Present: warm, dry, intact, normal color Course - Reevaluation(s) Reevaluation #1: 47-year-old male with multiple risk factors comes in complaining of chest pain. Patient did respond to nitroglycerin. Said no recent cardiac workup. Patient will be admitted for further evaluation and treatment. Time: 18:15 - Consultations Consultation #1: Discussed with , admit. Time: 18:15 Vital Signs Temperature 98.6 F 08/25/17 16:19 Pulse Rate 103 08/25/17 16:19 Respiratory Rate 22 08/25/17 16:19 Blood Pressure 105/83 08/25/17 16:19 O2 Sat by Pulse Oximetry 95 08/25/17 16:19 Temperature 98.6 F 08/25/17 16:19 Pulse Rate 102 08/25/17 17:57 Respiratory Rate 16 08/25/17 17:57 Blood Pressure 101/65 08/25/17 17:57 O2 Sat by Pulse Oximetry 94 08/25/17 17:57 Oxygen Delivery Oxygen Delivery Room Air Chest Pain - Lab Data Result diagrams: 08/25/17 16:57 08/25/17 16:57 Lab Results 08/25/17 08/25/17 08/25/17 Range/Units 16:57 16:57 16:57 WBC 4.9 (4.3-11.1) K/mcL RBC 4.29 (4.19-5.50) M/mcL Hgb 13.5 (12.9-16.9) g/dL Hct 40.0 (37.5-50.1) % MCV 93.2 (83.0-100.0) fL MCH 31.5 (28.0-33.3) pg MCHC 33.8 (31.6-35.5) g/dL RDW 12.9 (11.5-14.5) % Plt Count 165 (140-400) K/mcL MPV 8.9 L (9.4-12.4) fL Immature Gran % 0.6 (0-4) % Seg Neutrophils % 66.7 % Lymphocytes % 22.4 % Monocytes % 7.7 % Eosinophils % 2.2 % Basophils % 0.4 % Neutrophils # 3.3 (1.6-8.9) K/mcL Lymphocytes # 1.1 (0.6-4.6) K/mcL Monocytes # 0.4 (0.0-1.3) K/mcL Eosinophils # 0.1 (0.0-0.6) K/mcL Basophils # 0.0 (0.0-0.2) K/mcL PT 11.6 (9.4-12.1) Seconds INR 1.1 APTT 29.4 (26.0-36.0) Seconds Sodium 138 (136-145) mEq/L Potassium 3.7 (3.5-5.1) mEq/L Chloride 106 (98-107) mEq/L Carbon Dioxide 19 L (23-29) mEq/L BUN 21 H (6-20) mg/dL Creatinine 1.49 H (0.70-1.30) mg/dL Est GFR ( Amer) > 60 (> 60) Est GFR (Non-Af Amer) 50 L (> 60) BUN/Creatinine Ratio 14 (6-26) Glucose 195 H (70-105) mg/dL Calculated Osmolality 294 (280-300) Calcium 9.1 (8.6-10.3) mg/dL Troponin I < 0.03 (< 0.04) ng/mL - EKG Data EKG attestation: Yes I reviewed and interpreted this EKG. EKG shows normal: sinus rhythm Rate: tachycardia Rhythm: NSR [place]/QRS: normal Interpretation: no acute changes Heart Score - Score History: Moderately Suspicious EKG: Non Specific repolarisation Disturbance Age: 45-65 Risk Factors: Equal/Greater than 3 risk factor or history of atherosclerotic disease Troponin: Less than normal limit HEART Score Total: 5
[2017-08-25 17:19] LABS: Basophils % 0.4 %; Eosinophils # 0.1 K/mcL (0.0-0.6); Eosinophils % 2.2 %; Hemoglobin 13.5 g/dL (12.9-16.9); Immature Granulocytes % 0.6 % (0-4); Lymphocytes # 1.1 K/mcL (0.6-4.6); Lymphocytes % 22.4 %; Mean Corpuscular HGB Conc 33.8 g/dL (31.6-35.5); Mean Corpuscular Hemoglobin 31.5 pg (28.0-33.3); Mean Corpuscular Volume 93.2 fL (83.0-100.0); Mean Platelet Volume 8.9 fL (9.4-12.4); Monocytes # 0.4 K/mcL (0.0-1.3); Monocytes % 7.7 %; Neutrophils # 3.3 K/mcL (1.6-8.9); Platelet Count 165 K/mcL (140-400); Red Blood Count 4.29 M/mcL (4.19-5.50); Red Cell Distribution Width 12.9 % (11.5-14.5); Segmented Neutrophils % 66.7 %
[2017-08-25 17:28] LABS: INR 1.1; Prothrombin Time 11.6 Seconds (9.4-12.1)
[2017-08-25 17:31] LABS: Activated Partial Thrombo Time 29.4 Seconds (26.0-36.0)
[2017-08-25 17:34] LABS: BUN/Creatinine Ratio 14 (6-26); Blood Urea Nitrogen 21 mg/dL (6-20); Calcium 9.1 mg/dL (8.6-10.3); Carbon Dioxide 19 mEq/L (23-29); Chloride 106 mEq/L (98-107); Glucose 195 mg/dL (70-105); Osmolality,Calculated 294 (280-300); Potassium 3.7 mEq/L (3.5-5.1); Sodium 138 mEq/L (136-145); Troponin I < 0.03 ng/mL (< 0.04); eGFR For African Americans > 60 (> 60); eGFR For Non-African Americans 50 (> 60)
[2017-08-25] MEDS ORDERED: *HR* Dextrose 50 % in Water (Syg) 50 ML SYRINGE IVP PRN (18:43)
[2017-08-25] MEDS ORDERED: *HR* OxyCODONE Immed Rel 5 MG TABLET PO PRN (18:43)
[2017-08-25] MEDS ORDERED: *HR* HYDROcodone/Acet 5/325 mg TABLET PO PRN (18:43)
[2017-08-25] MEDS ORDERED: D5% in Water 1,000 ML IVC PRN (18:43)
[2017-08-25] MEDS ORDERED: Dextrose Gel 15 GM/37.5 ML TUBE PO PRN ×2 (18:43)
[2017-08-25] MEDS ORDERED: Naloxone 0.4 MG/ML INJ IVP PRN (18:43)
[2017-08-25] MEDS ORDERED: Acetaminophen 325 MG TABLET PO PRN (18:43)
--- NOTE | 2017-08-25 18:48 | Internal Med History&Physical ---
Date of Encounter: 08/25/17 Time of Encounter: 18:46 Internal Medicine - H&P: HPI Chief complaint: cp Admitted From: Emergency Dept History of present illness: Mr. Cartwright is a 47 year old male with a past medical history of diabetes type 2 not insulin-dependent, diastolic CHF, hypertension, hyperlipidemia, remote tobacco abuse, came to emergency room complaining of chest pain that started earlier today he was at his primary care physician's office. Pain started around 3:20 PM and lasted for about 30 minutes, midsternal stabbing-like 9 out of 10 in intensity radiating to the left side that subsided completely after the administration of nitroglycerin and aspirin. His creatinine at baseline is 1.03, today it has increased to 1.49, he has he has been little dehydrated lately, he has not taken his Lasix for the past 2 days. The chest x-ray did not show any acute cardiopulmonary disease, troponins are normal, EKG shows sinus tachycardia with a heart rate of 103. Denies any chest pain at the moment , denies any shortness of breath. Past Med Surg Social Fam HX - Past Medical History Medical history: other (Pulmonary nodules, COPD not oxygen dependent, neuropathy , diabetes type 2 insulin-dependent, diastolic CHF, hypertension, anxiety, GERD , hyperlipidemia, bipolar disorder, herpes type II, remote history of tobacco, SANDEE, agoraphobia and asthma) Additional medical history: RLS, eczema, Psychiatric history: anxiety, bipolar, depression - Past Surgical History Surgical History: other (Circumcision, lung biopsy) Additional surgical history: teeth extraction - Social History Smoking Status: Former smoker Packs per day: Quit smoking more than 3 years ago Smokeless Tobacco Status: No Alcohol use: none Drug use: none - Family History Father Living Status: Still Living Hx Family Cardiac Disorders: Yes (ME) - Additional Family History Additional family history: Father with hypertension, mother with diabetes and hypertension Internal Medicine - H&P: Meds Acyclovir [Zovirax] 400 mg PO BID PRN 06/12/15 [History] Albuterol Sulfate [Proair Hfa] 2 puff IH Q4H PRN 06/12/15 [History] Benztropine [Cogentin] 0.5 mg PO BID 06/12/15 [History] Canagliflozin [Invokana] 300 mg PO QAM 06/12/15 [History] Glimepiride [Amaryl] 8 mg PO QAM 06/12/15 [History] Metformin HCl [Glucophage] 1,000 mg PO BID 06/12/15 [History] Pantoprazole Sodium [Protonix] 20 mg PO QPM 06/12/15 [History] Ropinirole HCl [Requip] 4 mg PO HS 06/12/15 [History] diazePAM [Valium] 5 mg PO DAILY PRN 06/12/15 [History] Aspirin 81 mg PO DAILY 06/23/16 [History] Ezetimibe [Zetia] 10 mg PO DAILY 06/23/16 [History] Furosemide [Lasix] 40 mg PO DAILY 06/23/16 [History] Loratadine [Allergy Relief] 10 mg PO DAILY 06/23/16 [History] Losartan [Cozaar] 25 mg PO DAILY 06/23/16 [History] Potassium Chloride [Klor-Con 10] 10 meq PO BID 06/23/16 [History] Ziprasidone HCl [Geodon] 60 mg PO BID 06/23/16 [History] Meloxicam [Mobic] 15 mg PO DAILY 09/03/16 [History] Liraglutide [Victoza 2-Gen] 1.8 mg PO DAILY 03/16/17 [History] Budesonide/Formoterol 80/4.5 [Symbicort 80/4.5] 2 puff IH BID 05/04/17 [History ] HYDROcodone/Acet 7.5/325 mg [[place] 7.5-325 mg] 1 tab PO Q4-6H PRN 7 Days #28 tablet 05/04/17 [Rx] Levothyroxine [Synthroid] 150 mcg PO 0630 #30 tablet 05/04/17 [Rx] Pregabalin [Lyrica] 100 mg PO TID 05/04/17 [History] Lidocaine HCl [Lidocaine HCl Viscous] 1 ml MM Q3-4H PRN #1 bottle 07/14/17 [Rx] Penicillin VK 500 mg PO QID #40 tablet 07/14/17 [Rx] 3 Allergy/AdvReac Type Severity Reaction Status Date / Time lisinopril AdvReac Cough Verified 07/14/17 17:19 sulfamethoxazole AdvReac See Verified 07/14/17 17:19 [From Bactrim] Comments trimethoprim [From Bactrim] AdvReac See Verified 07/14/17 17:19 Comments All Systems PM: A 10-system review of systems was performed and is negative for pertinent findings except as documented above in the HPI. Review of systems: No fevers or chills, other systems out of the 10 reviewed were negative - Constitutional Vitals: Temp Pulse Resp BP Pulse Ox 98.6 F 102 16 101/65 94 08/25/17 16:19 08/25/17 17:57 08/25/17 17:57 08/25/17 17:57 08/25/17 17:57 General appearance: Present: A&O X 3, morbidly obese - Head Head exam: Present: atraumatic, normocephalic - Eye Eye exam: Present: PERRL, conjuntiva pink, sclera anicteric Pupils: Present: PERRL - Neck Neck exam general surgery: Present: supple, trachea midline. Absent: lymphadenopathy - Respiratory Respiratory exam: Present: CTAB. Absent: accessory muscle use, rales, rhonchi, wheezes - Cardiovascular Cardiovascular exam: Present: RRR, +S1, +S2, tachycardia. Absent: diastolic murmur, gallop, rubs, systolic murmur - GI/Abdominal GI/Abdominal exam: Present: normal bowel sounds, soft, no peritoneal signs. Absent: distended, tenderness - Extremities Exam Extremities exam: Present: warm, radial pulses palpable and symmetrical. Absent : calf tenderness, cyanotic, pedal edema - Neurological Exam Neurological exam: Present: CN II-XII intact, oriented X3, no focal deficits. Absent: pronater drift, facial droop, speech deficit - Skin Skin exam: Present: dry, intact Internal Med - H&P Results - Labs CBC & Chem 7: 08/25/17 16:57 08/25/17 16:57 Labs: Short CBC 08/25/17 Range/Units 16:57 WBC 4.9 (4.3-11.1) K/mcL Hgb 13.5 (12.9-16.9) g/dL Hct 40.0 (37.5-50.1) % Plt Count 165 (140-400) K/mcL Neutrophils # 3.3 (1.6-8.9) K/mcL BMP 08/25/17 16:57 Sodium 138 Potassium 3.7 Chloride 106 Carbon Dioxide 19 L BUN 21 H Creatinine 1.49 H Glucose 195 H Calcium 9.1 Cardiac Enzymes 08/25/17 Range/Units 16:57 Troponin I < 0.03 (< 0.04) ng/mL - Impressions ITS Impressions Chest X-Ray 08/25/17 16:20 IMPRESSION: Stable portable study. D/ / Nazanin Patterson Cha, MD / Nazanin Patterson Cha, MD Interpreting Provider: Nazanin Patterson Cha, MD - Assessment and plan (1) Acute renal failure Current Visit: Yes Status: Acute Assessment and plan: Acute renal failure likely secondary to dehydration Start IV fluids, hold Lasix and losartan Recheck BMP in the morning Omeprazole for GI prophylaxes and subcutaneous heparin for DVT prophylaxis. The patient will be admitted for observation. Full code. Time spent on this admission 40 minutes Qualifiers: Acute renal failure type: unspecified Qualified Code(s): N17.9 - Acute kidney failure, unspecified (2) Chest pain Current Visit: Yes Status: Acute Assessment and plan: Chest pain, nonspecific Continue aspirin, check troponins, telemetry, lipid panel Limited echocardiogram and schedule stress test in the morning Qualifiers: Chest pain type: unspecified Qualified Code(s): R07.9 - Chest pain, unspecified (3) Asthma Current Visit: No Status: Chronic Qualifiers: Asthma severity: unspecified severity Asthma complication type: uncomplicated Qualified Code(s): J45.909 - Unspecified asthma, uncomplicated (4) Diabetes Current Visit: No Status: Chronic Assessment and plan: Insulin sliding scale Qualifiers: Diabetes mellitus type: type 2 Diabetes mellitus detention insulin use: without detention use Diabetes mellitus complication status: without complication Qualified Code(s): E11.9 - Type 2 diabetes mellitus without complications (5) HTN (hypertension) Current Visit: No Status: Chronic Qualifiers: Hypertension type: essential hypertension Qualified Code(s): I10 - Essential (primary) hypertension (6) SANDEE (obstructive sleep apnea) Current Visit: No Status: Chronic - Time Spent With Patient Total time spent is greater than 50% in coordination of care (as documented) at patient's floor/unit and/or counseling patient:
[2017-08-25] MEDS ORDERED: Nitroglycerin 0.4 MG TAB.SUBL SL PRN (18:49)
[2017-08-25] MEDS: 0.9 % Sodium Chloride 1,000 ML IVC SCH (20:55)
[2017-08-25] MEDS: Insulin LISPRO 300 UNITS/3 ML VIAL SQ SCH (20:56)
[2017-08-25] MEDS: *HR* Heparin 5,000 UNIT/ML VIAL SQ SCH (21:02)
[2017-08-25] MEDS ORDERED: Ziprasidone 20 MG CAPSULE PO SCH (22:45)
[2017-08-25] MEDS: Pregabalin 50 MG CAPSULE PO SCH (23:25)
[2017-08-26] MEDS ORDERED: diazePAM 5 MG TABLET PO PRN (00:49)
[2017-08-26 01:06] LABS: Hemoglobin 12.8 g/dL (12.9-16.9); Mean Corpuscular HGB Conc 34.6 g/dL (31.6-35.5); Mean Corpuscular Hemoglobin 32.7 pg (28.0-33.3); Mean Corpuscular Volume 94.4 fL (83.0-100.0); Mean Platelet Volume 8.6 fL (9.4-12.4); Platelet Count 158 K/mcL (140-400); Red Blood Count 3.92 M/mcL (4.19-5.50); Red Cell Distribution Width 12.8 % (11.5-14.5)
[2017-08-26 01:29] LABS: BUN/Creatinine Ratio 13 (6-26); Blood Urea Nitrogen 20 mg/dL (6-20); Carbon Dioxide 23 mEq/L (23-29); Chloride 105 mEq/L (98-107); Chol/HDL Ratio 7.4 (0-4.9); Cholesterol 171 mg/dL (< 200); Glucose 161 mg/dL (70-105); HDL Cholesterol 23 mg/dL (40-59); LDL Cholesterol,Calculated 83 mg/dL (0-99); Osmolality,Calculated 286 (280-300); Potassium 3.6 mEq/L (3.5-5.1); Sodium 135 mEq/L (136-145); Triglycerides 323 mg/dL (< 150); eGFR For African Americans > 60 (> 60); eGFR For Non-African Americans 50 (> 60)
[2017-08-26] MEDS: ROPINIROLE PO SCH ×2 (02:24→21:33)
[2017-08-26] MEDS: *HR* Heparin 5,000 UNIT/ML VIAL SQ SCH ×3 (04:55→21:28)
[2017-08-26] MEDS ORDERED: Regadenoson 0.4 MG/5 ML SYRINGE IVP ONE (05:36)
--- NOTE | 2017-08-26 07:19 | Electrocardiograph Report ---
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
[2017-08-26] MEDS ORDERED: Perflutren Lipid Microsphere 1.3 ML in 0.9 % Sodium Chloride 8.7 ML IVP ONE (07:44)
[2017-08-26] MEDS ORDERED: *HR* Glimepiride 4 MG TABLET PO SCH (09:00)
[2017-08-26] MEDS: Budesonide/Formoterol 80/4.5 MDI IH SCH ×2 (10:48→20:05)
[2017-08-26] MEDS: Pregabalin 50 MG CAPSULE PO SCH ×3 (11:07→23:51)
[2017-08-26] MEDS: Loratadine 10 MG TABLET PO SCH (11:07)
[2017-08-26] MEDS: Insulin LISPRO 300 UNITS/3 ML VIAL SQ SCH ×4 (11:08→21:34)
[2017-08-26] MEDS: Furosemide 40 MG TABLET PO SCH (11:08)
[2017-08-26] MEDS: Ziprasidone 20 MG CAPSULE PO SCH (11:08)
[2017-08-26] MEDS: Aspirin 81 MG TAB.CHEW PO SCH (11:08)
[2017-08-26] MEDS: 0.9 % Sodium Chloride 1,000 ML IVC SCH ×3 (11:16→23:52)
--- NOTE | 2017-08-26 15:38 | Internal Med Progress Note ---
Date of Encounter: 08/26/17 Time of Encounter: 15:49 - Assessment and plan (1) Chest pain Current Visit: Yes Status: Acute Assessment and plan: presented with chest pain. Serial troponin negative. EKG without acute ST changes. TTE with EF 60%, normal left ventricular chamber size, wall thickness and function. 2 day stress test pending; second step to be completed 08/27/17. Continue ASA. Qualifiers: Chest pain type: unspecified Qualified Code(s): R07.9 - Chest pain, unspecified (2) Acute renal failure Current Visit: Yes Status: Acute Assessment and plan: Cr 1.4; baseline normal. Cont IV fluids. Stop home ARB. Monitor repeat renal function Qualifiers: Acute renal failure type: unspecified Qualified Code(s): N17.9 - Acute kidney failure, unspecified (3) HTN (hypertension) Current Visit: No Status: Chronic Assessment and plan: per hx. BP controlled. Stop home ARB with YANG. Add PRN IV hydralazine Qualifiers: Hypertension type: essential hypertension Qualified Code(s): I10 - Essential (primary) hypertension (4) Diabetes Current Visit: No Status: Chronic Assessment and plan: per hx. Holding home oral hypoglycemics. SSI. 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 (6) Asthma Current Visit: No Status: Chronic Assessment and plan: per hx. no evidence of exacerbation. Qualifiers: Asthma severity: unspecified severity Asthma complication type: uncomplicated Qualified Code(s): J45.909 - Unspecified asthma, uncomplicated (7) Neck pain Current Visit: Yes Status: Acute Assessment and plan: with left sided neck pain/spasms. No obvious injury or trauma. Cervical x-ray pending (8) DVT prophylaxis Current Visit: No Status: Acute Assessment and plan: heparin - Time Spent With Patient Total time spent is greater than 50% in coordination of care (as documented) at patient's floor/unit and/or counseling patient: - Subjective Interval history: Seen and examined at bedside. Patient is new to me, information obtained from chart review and patient report. He denies chest pain or shortness of breath on my exam. He does report intermittent left-sided neck pain described as spasms with some radiculopathy to left arm. - Constitutional Vitals: Temp Pulse Resp BP Pulse Ox 98.4 F 88 17 116/79 96 08/26/17 11:46 08/26/17 11:46 08/26/17 11:46 08/26/17 11:46 08/26/17 11:46 General appearance: Present: A&O X 3, morbidly obese - Head Head exam: Present: atraumatic, normocephalic - Eye Eye exam: Present: PERRL, conjuntiva pink, sclera anicteric Pupils: Present: PERRL - Neck Neck exam general surgery: Present: supple, trachea midline. Absent: lymphadenopathy - Respiratory Respiratory exam: Present: CTAB. Absent: accessory muscle use, rales, rhonchi, wheezes - Cardiovascular Cardiovascular exam: Present: RRR, +S1, +S2. Absent: diastolic murmur, gallop, rubs, systolic murmur - GI/Abdominal GI/Abdominal exam: Present: normal bowel sounds, soft, no peritoneal signs. Absent: distended, tenderness - Extremities Exam Extremities exam: Present: warm, radial pulses palpable and symmetrical. Absent : calf tenderness, cyanotic, pedal edema - Neurological Exam Neurological exam: Present: CN II-XII intact, oriented X3, no focal deficits. Absent: pronater drift, facial droop, speech deficit - Skin Skin exam: Present: dry, intact Internal Medicine: Result - Labs CBC & Chem 7: 08/26/17 00:52 08/26/17 00:52 Labs: Short CBC 08/26/17 Range/Units 00:52 WBC 5.9 (4.3-11.1) K/mcL Hgb 12.8 L (12.9-16.9) g/dL Hct 37.0 L (37.5-50.1) % Plt Count 158 (140-400) K/mcL BMP 08/26/17 00:52 Sodium 135 L Potassium 3.6 Chloride 105 Carbon Dioxide 23 BUN 20 Creatinine 1.50 H Glucose 161 H Calcium 9.0 Cardiac Enzymes 08/26/17 08/26/17 Range/Units 00:52 06:48 Troponin I < 0.03 < 0.03 (< 0.04) ng/mL - ABG Interpretation ABG results: PT/INR, D-dimer PT 11.6 Seconds (9.4-12.1) 08/25/17 16:57 - Impressions Impressions Echocardiogram Limited Views 08/26/17 18:40 Impressions: LVEF 60%. Normal LV chamber size, wall thickness and function. Normal right ventricular structure and function. Left Ventricular Wall Motion: Rest Echo Findings All wall segments showed normal motion. Findings: Study Quality * Technically adequate exam. ECG Findings * Normal sinus rhythm. Left Ventricle * LVEF 60%. * Normal LV chamber size, wall thickness and function. * Definity echo contrast was used. Right Ventricle * Normal right ventricular structure and function. Aorta * Normally sized aortic root. Pericardium * There is no pericardial effusion present. Consult Discharge Plan - Plan Referrals: Carmine Harley MD [Primary Care Provider] - 09/13/17 1:00 pm
[2017-08-26] MEDS ORDERED: Ziprasidone 20 MG CAPSULE PO SCH (21:00)
[2017-08-27] MEDS: *HR* Heparin 5,000 UNIT/ML VIAL SQ SCH (04:25)
[2017-08-27 06:33] LABS: Hematocrit 37.6 % (37.5-50.1); Hemoglobin 12.9 g/dL (12.9-16.9); Mean Corpuscular HGB Conc 34.3 g/dL (31.6-35.5); Mean Corpuscular Hemoglobin 32.7 pg (28.0-33.3); Mean Corpuscular Volume 95.2 fL (83.0-100.0); Mean Platelet Volume 8.7 fL (9.4-12.4); Platelet Count 151 K/mcL (140-400); Red Blood Count 3.95 M/mcL (4.19-5.50); Red Cell Distribution Width 12.9 % (11.5-14.5)
[2017-08-27 06:49] LABS: BUN/Creatinine Ratio 14 (6-26); Blood Urea Nitrogen 20 mg/dL (6-20); Calcium 8.7 mg/dL (8.6-10.3); Carbon Dioxide 22 mEq/L (23-29); Chloride 108 mEq/L (98-107); Glucose 147 mg/dL (70-105); Osmolality,Calculated 293 (280-300); Potassium 3.8 mEq/L (3.5-5.1); Sodium 139 mEq/L (136-145); eGFR For African Americans > 60 (> 60); eGFR For Non-African Americans 54 (> 60)
[2017-08-27 07:44] VITALS: BP 116/80
[2017-08-27] MEDS: Budesonide/Formoterol 80/4.5 MDI IH SCH (07:57)
[2017-08-27] MEDS: Ziprasidone 20 MG CAPSULE PO SCH (08:26)
[2017-08-27] MEDS: Pregabalin 50 MG CAPSULE PO SCH (08:26)
[2017-08-27] MEDS: Furosemide 40 MG TABLET PO SCH (08:27)
[2017-08-27] MEDS: Aspirin 81 MG TAB.CHEW PO SCH (08:27)
[2017-08-27] MEDS: Loratadine 10 MG TABLET PO SCH (08:27)
[2017-08-27] MEDS: Insulin LISPRO 300 UNITS/3 ML VIAL SQ SCH (08:29)
--- NOTE | 2017-08-27 10:23 | Event Note ---
Date of Encounter: 08/27/17 Time of Encounter: 10:21 Notified by nursing that patient left AMA after second part of stress test was completed. Patient left before he was seen or examined.
[2017-08-27 11:22] LABS: Estimated Average Glucose 174 mg/dl; Hemoglobin A1C 7.7 %
== END 2017-08-27 10:09 | disposition left against medical advice (07) ==
LOC: 3BNU 16:17 → EMEROO 16:17 → SUATTDRO 19:01 → 3BNU 19:55
PROVIDERS: ADMIT Internal Medicine; ATTEND Nurse Practitioner

== ENCOUNTER 2020-04-23 22:09 | Inpatient (IN) ==
[2020-04-23 22:45] LABS: Basophils % 0.2 %; Eosinophils % 0.2 %; Hemoglobin 12.3 g/dL (12.9-16.9); Immature Granulocytes % 0.6 % (0-4); Lymphocytes # 1.4 K/mcL (0.6-4.6); Lymphocytes % 25.4 %; Mean Corpuscular HGB Conc 32.4 g/dL (31.6-35.5); Mean Corpuscular Hemoglobin 30.7 pg (28.0-33.3); Mean Corpuscular Volume 94.8 fL (83.0-100.0); Mean Platelet Volume 8.9 fL (9.4-12.4); Monocytes # 0.4 K/mcL (0.0-1.3); Monocytes % 6.8 %; Platelet Count 213 K/mcL (140-400); Red Blood Count 4.01 M/mcL (4.19-5.50); Segmented Neutrophils % 66.8 %
[2020-04-23 22:46] LABS: Neutrophils # 3.5 K/mcL (1.6-8.9); White Blood Count 5.3 K/mcL (4.3-11.1)
[2020-04-23 22:52] LABS: INR 1.2
[2020-04-23 23:29] LABS: Alanine Aminotransferase 26 Units/L (7-52); Alkaline Phosphatase 48 Units/L (34-104); Aspartate Amino Transferase 37 Units/L (13-39); BUN/Creatinine Ratio 15 (6-26); Bilirubin,Direct 0.4 mg/dL (0.0-0.2); Bilirubin,Indirect 0.3 mg/dL (0.0-1.0); Bilirubin,Total 0.7 mg/dL (0.3-1.0); Blood Urea Nitrogen 21 mg/dL (6-20); C-Reactive Protein 131 mg/L (Less than 10); Carbon Dioxide 20 mEq/L (23-29); Chloride 105 mEq/L (98-107); Ferritin 202 ng/mL (20-250); Glucose 175 mg/dL (70-105); Lactate Dehydrogenase 194 Units/L (140-271); Magnesium 1.6 mg/dL (1.6-2.6); Osmolality,Calculated 293 (280-300); Phosphorous 2.6 mg/dL (2.7-4.5); Potassium 3.9 mEq/L (3.5-5.1); Sodium 138 mEq/L (136-145); Troponin I < 0.03 ng/mL (< 0.04); eGFR For African Americans > 60 (> 60); eGFR For Non-African Americans 54 (> 60)
[2020-04-24] MEDS ORDERED: Isovue-370 500 ML BOTTLE IVP ONE (00:05)
[2020-04-24 00:12] LABS: Albumin/Globulin Ratio 1.1 (1.1-2.2); Globulin 3.6 g/dL (2.4-3.5); Total Protein 7.6 g/dL (6.4-8.9)
[2020-04-24] MEDS ORDERED: Ondansetron 4 MG/2 ML VIAL IVP PRN (00:42)
[2020-04-24] MEDS ORDERED: Naloxone 0.4 MG/ML INJ IVP PRN (00:42)
[2020-04-24 02:24] LABS: Basophils % 0.3 %; Eosinophils % 0.3 %; Hematocrit 33.7 % (37.5-50.1); Hemoglobin 11.2 g/dL (12.9-16.9); Immature Granulocytes % 0.3 % (0-4); Lymphocytes # 0.9 K/mcL (0.6-4.6); Lymphocytes % 25.1 %; Mean Corpuscular HGB Conc 33.2 g/dL (31.6-35.5); Mean Corpuscular Hemoglobin 31.4 pg (28.0-33.3); Mean Corpuscular Volume 94.4 fL (83.0-100.0); Mean Platelet Volume 8.8 fL (9.4-12.4); Monocytes # 0.2 K/mcL (0.0-1.3); Monocytes % 5.1 %; Neutrophils # 2.4 K/mcL (1.6-8.9); Platelet Count 172 K/mcL (140-400); Red Blood Count 3.57 M/mcL (4.19-5.50); Red Cell Distribution Width 12.9 % (11.5-14.5); Segmented Neutrophils % 68.9 %; White Blood Count 3.5 K/mcL (4.3-11.1)
[2020-04-24 02:34] LABS: INR 1.1; Prothrombin Time 13.2 Seconds (9.4-12.1)
[2020-04-24 02:46] LABS: Alanine Aminotransferase 23 Units/L (7-52); Albumin 3.6 g/dL (3.5-5.7); Albumin/Globulin Ratio 1.1 (1.1-2.2); Alkaline Phosphatase 42 Units/L (34-104); Aspartate Amino Transferase 33 Units/L (13-39); BUN/Creatinine Ratio 18 (6-26); Bilirubin,Total 0.6 mg/dL (0.3-1.0); Blood Urea Nitrogen 21 mg/dL (6-20); C-Reactive Protein 122 mg/L (Less than 10); Calcium 8.7 mg/dL (8.6-10.3); Carbon Dioxide 21 mEq/L (23-29); Chloride 105 mEq/L (98-107); Globulin 3.3 g/dL (2.4-3.5); Glucose 129 mg/dL (70-105); Lactate Dehydrogenase 187 Units/L (140-271); Magnesium 1.7 mg/dL (1.6-2.6); Osmolality,Calculated 285 (280-300); Phosphorous 3.7 mg/dL (2.7-4.5); Potassium 3.8 mEq/L (3.5-5.1); Sodium 135 mEq/L (136-145); Total Protein 6.9 g/dL (6.4-8.9); eGFR For African Americans > 60 (> 60); eGFR For Non-African Americans > 60 (> 60)
[2020-04-24 03:04] LABS: Ferritin 178 ng/mL (20-250)
[2020-04-24] MEDS ORDERED: diazePAM 5 MG TABLET PO PRN (03:23)
[2020-04-24] MEDS: *HR* Enoxaparin 40 MG/0.4 ML SYRINGE SQ SCH (06:03)
[2020-04-24] MEDS: Fenofibrate 54 MG TABLET PO SCH (07:53)
[2020-04-24] MEDS: Ziprasidone 20 MG CAPSULE PO SCH (07:53)
[2020-04-24] MEDS: Aspirin Enteric Coated 81 MG Tablet PO SCH (07:53)
[2020-04-24] MEDS: Pregabalin 75 MG CAPSULE PO SCH ×3 (07:54→19:53)
[2020-04-24] MEDS: Loratadine 10 MG TABLET PO SCH (07:54)
[2020-04-24] MEDS: Nystatin Ointment 15 GM TUBE TP SCH ×2 (07:54→19:56)
[2020-04-24] MEDS: Nystatin POWDER 30 GM BOTTLE TP SCH ×3 (07:55→19:56)
[2020-04-24] MEDS ORDERED: Nystatin POWDER 30 GM BOTTLE TP PRN (07:57)
[2020-04-24] MEDS: Budesonide/Formoterol 80/4.5 1 PUFF INH IH SCH ×2 (08:20→19:48)
[2020-04-24] MEDS ORDERED: Dexamethasone Sodium Phos/PF 10 MG/ML VIAL IVP SCH (09:00)
[2020-04-24] MEDS ORDERED: Furosemide 40 MG TABLET PO SCH (09:00)
[2020-04-24] MEDS: Ipratropium 1 PUFF INHALER IH SCH ×4 (11:09→23:40)
[2020-04-24] MEDS ORDERED: D5% in Water 1,000 ML IVC PRN (11:59)
[2020-04-24] MEDS ORDERED: *HR* Dextrose 50 % in Water (Vial) 50 ML VIAL IVP PRN (11:59)
[2020-04-24] MEDS ORDERED: Dextrose Gel 15 GM/37.5 ML TUBE PO PRN ×2 (11:59)
[2020-04-24] MEDS: Acetaminophen 325 MG TABLET PO PRN (14:13)
[2020-04-24] MEDS: amLODIPine 5 MG TABLET PO SCH (15:59)
[2020-04-24] MEDS: Insulin LISPRO 300 UNITS/3 ML VIAL SUBQ SCH (16:57)
[2020-04-24] MEDS: Insulin DETEMIR 100 UNIT/ML X5UNITS SUBQ SCH (19:55)
[2020-04-24] MEDS: Sennosides/Docusate Sodium TABLET PO SCH (19:56)
[2020-04-24] MEDS: Ziprasidone 80 MG CAPSULE PO SCH (21:40)
[2020-04-25] MEDS: Ipratropium 1 PUFF INHALER IH SCH ×6 (04:06→23:57)
[2020-04-25] MEDS: *HR* Enoxaparin 40 MG/0.4 ML SYRINGE SQ SCH (06:12)
[2020-04-25 06:57] LABS: VBG HCO3 26 mEq/L (21-27); VBG PCO2 39 mmHg (41-51); VBG PH 7.44 pH Units (7.32-7.42); VBG PO2 103 mmHg (25-50)
[2020-04-25 07:10] LABS: Fibrinogen 500 mg/dL (169-393)
[2020-04-25 07:11] LABS: D-Dimer 611 ng/mLFEU (0-500)
[2020-04-25] MEDS: Budesonide/Formoterol 80/4.5 1 PUFF INH IH SCH ×2 (07:18→19:44)
[2020-04-25 08:11] LABS: BUN/Creatinine Ratio 19 (6-26); Blood Urea Nitrogen 22 mg/dL (6-20); Calcium 9.1 mg/dL (8.6-10.3); Carbon Dioxide 24 mEq/L (23-29); Chloride 103 mEq/L (98-107); Glucose 156 mg/dL (70-105); Magnesium 1.8 mg/dL (1.6-2.6); Osmolality,Calculated 295 (280-300); Potassium 3.9 mEq/L (3.5-5.1); Sodium 139 mEq/L (136-145); eGFR For African Americans > 60 (> 60); eGFR For Non-African Americans > 60 (> 60)
[2020-04-25 08:13] LABS: Thyroid Stimulating Hormone 0.278 mcIU/mL (0.340-5.600)
[2020-04-25] MEDS: Insulin LISPRO 300 UNITS/3 ML VIAL SUBQ SCH ×3 (09:17→17:49)
[2020-04-25] MEDS: Loratadine 10 MG TABLET PO SCH (09:18)
[2020-04-25] MEDS: amLODIPine 5 MG TABLET PO SCH (09:19)
[2020-04-25] MEDS: Pregabalin 75 MG CAPSULE PO SCH ×3 (09:19→20:03)
[2020-04-25] MEDS: Fenofibrate 54 MG TABLET PO SCH (09:19)
[2020-04-25] MEDS: Acetaminophen 325 MG TABLET PO PRN (09:19)
[2020-04-25] MEDS: Sennosides/Docusate Sodium TABLET PO SCH ×2 (09:19→20:04)
[2020-04-25] MEDS: Ziprasidone 20 MG CAPSULE PO SCH (09:19)
[2020-04-25] MEDS: Dexamethasone 4 MG/ML VIAL IVP SCH (09:26)
[2020-04-25] MEDS: Nystatin Ointment 15 GM TUBE TP SCH ×2 (09:26→22:25)
[2020-04-25] MEDS: Nystatin POWDER 30 GM BOTTLE TP SCH ×3 (09:26→22:25)
[2020-04-25] MEDS: Furosemide 40 MG/4 ML VIAL IVP SCH (09:31)
[2020-04-25] MEDS: Aspirin Enteric Coated 81 MG Tablet PO SCH (09:31)
[2020-04-25 11:22] LABS: Hemoglobin 11.6 g/dL (12.9-16.9)
[2020-04-25 11:24] LABS: Basophils % 0.2 %; Eosinophils % 0.5 %; Hematocrit 36.1 % (37.5-50.1); Immature Platelets 1.8 % (1.1-6.1); Lymphocytes # 1.1 K/mcL (0.6-4.6); Lymphocytes % 25.9 %; Mean Corpuscular HGB Conc 32.1 g/dL (31.6-35.5); Mean Corpuscular Hemoglobin 30.7 pg (28.0-33.3); Mean Corpuscular Volume 95.5 fL (83.0-100.0); Mean Platelet Volume 9.6 fL (9.4-12.4); Monocytes # 0.3 K/mcL (0.0-1.3); Monocytes % 6.4 %; Neutrophils # 2.7 K/mcL (1.6-8.9); Platelet Count 249 K/mcL (140-400); Red Blood Count 3.78 M/mcL (4.19-5.50); White Blood Count 4.1 K/mcL (4.3-11.1)
[2020-04-25 12:12] LABS: Estimated Average Glucose 163 mg/dl; Hemoglobin A1C 7.3 %
[2020-04-25] MEDS: Ziprasidone 80 MG CAPSULE PO SCH (20:02)
[2020-04-25] MEDS: Insulin DETEMIR 100 UNIT/ML X5UNITS SUBQ SCH (20:02)
[2020-04-25] MEDS: ROPINIROLE PO SCH (20:03)
[2020-04-25] MEDS ORDERED: ROPINIROLE HCL 10 MG PO SCH (21:00)
[2020-04-26] MEDS: Ipratropium 1 PUFF INHALER IH SCH ×6 (03:47→23:36)
[2020-04-26] MEDS: *HR* Enoxaparin 40 MG/0.4 ML SYRINGE SQ SCH (05:20)
[2020-04-26 05:38] LABS: Eosinophils % 0.2 %; Hematocrit 34.8 % (37.5-50.1); Hemoglobin 11.3 g/dL (12.9-16.9); Lymphocytes % 25.2 %; Mean Corpuscular HGB Conc 32.5 g/dL (31.6-35.5); Mean Corpuscular Hemoglobin 30.5 pg (28.0-33.3); Mean Corpuscular Volume 93.8 fL (83.0-100.0); Mean Platelet Volume 8.7 fL (9.4-12.4); Monocytes # 0.3 K/mcL (0.0-1.3); Neutrophils # 2.8 K/mcL (1.6-8.9); Platelet Count 233 K/mcL (140-400); Red Blood Count 3.71 M/mcL (4.19-5.50); Red Cell Distribution Width 12.7 % (11.5-14.5); Segmented Neutrophils % 66.6 %; White Blood Count 4.1 K/mcL (4.3-11.1)
[2020-04-26 05:38] LABS: VBG HCO3 29 mEq/L (21-27); VBG PCO2 47 mmHg (41-51); VBG PO2 169 mmHg (25-50)
[2020-04-26 05:47] LABS: Fibrinogen 384 mg/dL (169-393)
[2020-04-26 05:49] LABS: D-Dimer 505 ng/mLFEU (0-500)
[2020-04-26 05:59] LABS: BUN/Creatinine Ratio 23 (6-26); Blood Urea Nitrogen 26 mg/dL (6-20); Calcium 8.7 mg/dL (8.6-10.3); Carbon Dioxide 28 mEq/L (23-29); Chloride 104 mEq/L (98-107); Glucose 216 mg/dL (70-105); Magnesium 1.7 mg/dL (1.6-2.6); Osmolality,Calculated 299 (280-300); Potassium 3.7 mEq/L (3.5-5.1); Sodium 139 mEq/L (136-145); eGFR For African Americans > 60 (> 60); eGFR For Non-African Americans > 60 (> 60)
[2020-04-26] MEDS: Budesonide/Formoterol 80/4.5 1 PUFF INH IH SCH ×2 (07:24→20:06)
[2020-04-26] MEDS: Sennosides/Docusate Sodium TABLET PO SCH ×2 (08:56→19:52)
[2020-04-26] MEDS: Pregabalin 75 MG CAPSULE PO SCH ×3 (08:57→19:52)
[2020-04-26] MEDS: amLODIPine 5 MG TABLET PO SCH (08:57)
[2020-04-26] MEDS: Ziprasidone 20 MG CAPSULE PO SCH (08:57)
[2020-04-26] MEDS: Dexamethasone 4 MG/ML VIAL IVP SCH (08:57)
[2020-04-26] MEDS: Fenofibrate 54 MG TABLET PO SCH (08:57)
[2020-04-26] MEDS: Loratadine 10 MG TABLET PO SCH (08:57)
[2020-04-26] MEDS: Aspirin Enteric Coated 81 MG Tablet PO SCH (08:57)
[2020-04-26] MEDS: Furosemide 40 MG/4 ML VIAL IVP SCH (08:58)
[2020-04-26] MEDS: Insulin LISPRO 300 UNITS/3 ML VIAL SUBQ SCH ×3 (08:58→16:53)
[2020-04-26] MEDS: Nystatin Ointment 15 GM TUBE TP SCH (09:22)
[2020-04-26] MEDS: Nystatin POWDER 30 GM BOTTLE TP SCH ×3 (09:22→20:34)
[2020-04-26] MEDS ORDERED: Sennosides/Docusate Sodium TABLET PO PRN (16:09)
[2020-04-26] MEDS: Acetaminophen 325 MG TABLET PO PRN (16:58)
[2020-04-26] MEDS: ROPINIROLE PO SCH (19:51)
[2020-04-26] MEDS: Ziprasidone 80 MG CAPSULE PO SCH (19:52)
[2020-04-26] MEDS: Insulin DETEMIR 100 UNIT/ML X5UNITS SUBQ SCH (20:32)
[2020-04-26] MEDS ORDERED: Nystatin Ointment 15 GM TUBE TP SCH (21:00)
[2020-04-26] MEDS ORDERED: Insulin LISPRO 300 UNITS/3 ML VIAL SUBQ ONE (21:38)
[2020-04-27] MEDS: Ipratropium 1 PUFF INHALER IH SCH ×3 (03:40→11:03)
[2020-04-27 03:57] LABS: Basophils % 0.4 %; Eosinophils % 0.2 %; Hematocrit 37.6 % (37.5-50.1); Hemoglobin 12.6 g/dL (12.9-16.9); Immature Granulocytes % 1.5 % (0-4); Lymphocytes # 1.3 K/mcL (0.6-4.6); Lymphocytes % 24.3 %; Mean Corpuscular HGB Conc 33.5 g/dL (31.6-35.5); Mean Corpuscular Hemoglobin 31.7 pg (28.0-33.3); Mean Corpuscular Volume 94.5 fL (83.0-100.0); Monocytes # 0.4 K/mcL (0.0-1.3); Monocytes % 7.6 %; Neutrophils # 3.5 K/mcL (1.6-8.9); Platelet Count 275 K/mcL (140-400); Red Blood Count 3.98 M/mcL (4.19-5.50); Red Cell Distribution Width 12.6 % (11.5-14.5); White Blood Count 5.2 K/mcL (4.3-11.1)
[2020-04-27 04:20] LABS: BUN/Creatinine Ratio 26 (6-26); Blood Urea Nitrogen 27 mg/dL (6-20); Carbon Dioxide 25 mEq/L (23-29); Chloride 104 mEq/L (98-107); Glucose 208 mg/dL (70-105); Osmolality,Calculated 299 (280-300); Potassium 3.8 mEq/L (3.5-5.1); Sodium 139 mEq/L (136-145); eGFR For African Americans > 60 (> 60); eGFR For Non-African Americans > 60 (> 60)
[2020-04-27] MEDS: *HR* Enoxaparin 40 MG/0.4 ML SYRINGE SQ SCH (04:47)
[2020-04-27] MEDS: Budesonide/Formoterol 80/4.5 1 PUFF INH IH SCH (07:54)
[2020-04-27] MEDS ORDERED: polyethylene glycoL 3350 17 GM POWD.PACK PO SCH (09:00)
[2020-04-27 11:42] VITALS: BP 149/96
[2020-04-27] MEDS: Insulin LISPRO 300 UNITS/3 ML VIAL SUBQ SCH ×2 (11:49→12:06)
[2020-04-27] MEDS: Acetaminophen 325 MG TABLET PO PRN (12:03)
[2020-04-27] MEDS: Pregabalin 75 MG CAPSULE PO SCH (15:23)
== END 2020-04-27 16:56 | disposition home health service (06) | DRG 177 ==
LOC: 2NENU 22:09 → EMEROOARM 22:09 → SUATTDRO 04-24 00:46 → 2NENU 04-24 01:08
PROVIDERS: ADMIT Student in an Organized Health Care Education/Training Program; ATTEND Pharmacist

== ENCOUNTER 2020-08-01 10:05 | Inpatient (IN) ==
[2020-08-01] MEDS ORDERED: 0.9 % Sodium Chloride 1,000 ML IVC ONE (10:20)
[2020-08-01] MEDS ORDERED: Isovue-370 500 ML BOTTLE IVP ONE (10:32)
[2020-08-01 10:59] LABS: VBG HCO3 22 mEq/L (21-27); VBG PCO2 36 mmHg (41-51); VBG PH 7.39 pH Units (7.32-7.42); VBG PO2 75 mmHg (25-50)
[2020-08-01 10:59] LABS: Hematocrit 30.8 % (37.5-50.1); Hemoglobin 9.9 g/dL (12.9-16.9); Mean Corpuscular HGB Conc 32.1 g/dL (31.6-35.5); Mean Corpuscular Hemoglobin 30.4 pg (28.0-33.3); Mean Corpuscular Volume 94.5 fL (83.0-100.0); Mean Platelet Volume 9.6 fL (9.4-12.4); Nucleated Red Blood Cells 0.2 /100 WBC (0); Platelet Count 251 K/mcL (140-400); Red Blood Count 3.26 M/mcL (4.19-5.50); White Blood Count 13.4 K/mcL (4.3-11.1)
[2020-08-01 11:12] LABS: BUN/Creatinine Ratio 18 (6-26); Blood Urea Nitrogen 24 mg/dL (6-20); Calcium 9.2 mg/dL (8.6-10.3); Carbon Dioxide 21 mEq/L (23-29); Chloride 99 mEq/L (98-107); Glucose 269 mg/dL (70-105); Osmolality,Calculated 286 (280-300); Potassium 4.3 mEq/L (3.5-5.1); Sodium 131 mEq/L (136-145); eGFR For African Americans > 60 (> 60); eGFR For Non-African Americans 57 (> 60)
[2020-08-01 11:17] LABS: Troponin I 0.07 ng/mL (< 0.04)
[2020-08-01 11:18] LABS: Monocytes # 0.3 K/mcL (0.0-1.3); Neutrophils # 11.1 K/mcL (1.6-8.9); Platelet Estimate Normal (Normal)
[2020-08-01] MEDS ORDERED: Piperacillin/Tazobactam 3.375 GM in 0.9 % Sodium Chloride Mini Bag 100 ML IVPB ONE (11:33)
[2020-08-01] MEDS: Aspirin 81 MG TAB.CHEW PO SCH (11:54)
[2020-08-01] MEDS ORDERED: Vancomycin 2,000 MG/520 ML IV.SOLN IVPB ONE (12:00)
[2020-08-01 12:28] LABS: Bilirubin,Urine Negative (Negative); Blood,Urine Negative (Negative); Clarity,Urine Clear (Clear); Color,Urine Yellow (Yellow); Glucose,Urine (UA) 300 mg/dL (Normal); Ketones,Urine 10 mg/dL (Negative); Leukocyte Esterase,Urine Negative (Negative); Mucus,Urine Moderate per lpf (None-Few); Nitrite,Urine Negative (Negative); Protein,Urine 100 mg/dL (Neg-Trace); RBC,Urine 0-3 per hpf (0-3); Specific Gravity,Urine > 1.030 (1.010-1.025); Squamous Epithelial Cell,Urine Few per hpf (None-Few); Urobilinogen,Urine Normal (Normal); WBC,Urine 0-3 per hpf (0-3)
[2020-08-01 12:29] LABS: Amphetamine Screen,Urine Negative ng/mL (Cutoff=1000); Barbiturate Screen,Urine Negative ng/mL (Cutoff=200); Benzodiazepines Screen,Urine Negative ng/mL (Cutoff=200); Cannabinoid Screen,Urine Negative ng/mL (Cutoff = 50); Cocaine Screen,Urine Negative ng/mL (Cutoff= 300); Opiate Screen,Urine Negative ng/mL (Cutoff=300); Phencyclidine Screen,Urine Negative ng/mL (Cutoff=25)
[2020-08-01] MEDS ORDERED: Clindamycin 600 MG/50 ML 600 MG/50 ML IV.SOLN IVPB ONE (13:01)
[2020-08-01] MEDS ORDERED: Ondansetron 4 MG/2 ML VIAL IVP PRN (13:17)
[2020-08-01] MEDS ORDERED: Naloxone 0.4 MG/ML INJ IVP PRN (13:17)
[2020-08-01] MEDS ORDERED: Acetaminophen 325 MG TABLET PO PRN (13:46)
[2020-08-01] MEDS ORDERED: *HR* HYDROcodone/Acet 5/325 mg TABLET PO PRN (13:46)
[2020-08-01] MEDS ORDERED: *HR* OxyCODONE Immed Rel 5 MG TABLET PO PRN (13:46)
[2020-08-01] MEDS ORDERED: Nitroglycerin 0.4 MG TAB.SUBL SL PRN (13:47)
[2020-08-01] MEDS ORDERED: D5% in Water 1,000 ML IVC PRN (13:49)
[2020-08-01] MEDS ORDERED: *HR* Dextrose 50 % in Water (Vial) 50 ML VIAL IVP PRN (13:49)
[2020-08-01] MEDS ORDERED: Dextrose Gel 15 GM/37.5 ML TUBE PO PRN ×2 (13:49)
[2020-08-01] MEDS: Ipratropium/Albuterol Neb 3 ML IH SCH ×2 (16:47→22:38)
[2020-08-01] MEDS: Nystatin POWDER 30 GM BOTTLE TP SCH ×2 (17:59→20:00)
[2020-08-01] MEDS: *HR* Heparin 5,000 UNIT/ML VIAL SQ SCH (18:00)
[2020-08-01] MEDS: Insulin LISPRO 300 UNITS/3 ML VIAL SUBQ SCH ×2 (19:15→21:18)
[2020-08-01] MEDS: Piperacillin/Tazobactam 3.375 GM in 0.9 % Sodium Chloride Mini Bag 100 ML IVPB SCH (19:53)
[2020-08-01] MEDS ORDERED: Clindamycin 600 MG/50 ML 600 MG/50 ML IV.SOLN IVPB SCH (22:00)
[2020-08-01] MEDS: Vancomycin 2,000 MG/520 ML IV.SOLN IVPB SCH (23:48)
[2020-08-02 02:48] LABS: Basophils % 0.2 %; Eosinophils # 0.1 K/mcL (0.0-0.6); Eosinophils % 0.8 %; Hematocrit 29.9 % (37.5-50.1); Hemoglobin 9.4 g/dL (12.9-16.9); Immature Granulocytes % 1.5 % (0-4); Lymphocytes # 1.1 K/mcL (0.6-4.6); Mean Corpuscular HGB Conc 31.4 g/dL (31.6-35.5); Mean Corpuscular Volume 95.5 fL (83.0-100.0); Mean Platelet Volume 9.4 fL (9.4-12.4); Monocytes # 0.5 K/mcL (0.0-1.3); Monocytes % 3.9 %; Platelet Count 234 K/mcL (140-400); Red Blood Count 3.13 M/mcL (4.19-5.50); Red Cell Distribution Width 14.2 % (11.5-14.5); Segmented Neutrophils % 84.6 %; White Blood Count 12.1 K/mcL (4.3-11.1)
[2020-08-02 02:56] LABS: Neutrophils # 10.2 K/mcL (1.6-8.9)
[2020-08-02 03:05] LABS: BUN/Creatinine Ratio 18 (6-26); Blood Urea Nitrogen 21 mg/dL (6-20); Calcium 8.5 mg/dL (8.6-10.3); Carbon Dioxide 23 mEq/L (23-29); Chloride 102 mEq/L (98-107); Glucose 266 mg/dL (70-105); Osmolality,Calculated 290 (280-300); Potassium 4.2 mEq/L (3.5-5.1); Sodium 134 mEq/L (136-145); eGFR For African Americans > 60 (> 60); eGFR For Non-African Americans > 60 (> 60)
[2020-08-02 03:21] LABS: Platelet Estimate Normal (Normal); Polychromasia 1+ (Not Present)
[2020-08-02] MEDS: Piperacillin/Tazobactam 3.375 GM in 0.9 % Sodium Chloride Mini Bag 100 ML IVPB SCH ×3 (03:58→21:22)
[2020-08-02] MEDS: *HR* Heparin 5,000 UNIT/ML VIAL SQ SCH ×2 (06:17→18:27)
[2020-08-02] MEDS: Ipratropium/Albuterol Neb 3 ML IH SCH ×4 (07:19→20:38)
[2020-08-02] MEDS: Insulin LISPRO 300 UNITS/3 ML VIAL SUBQ SCH ×6 (07:48→21:22)
[2020-08-02] MEDS: Aspirin 81 MG TAB.CHEW PO SCH (07:48)
[2020-08-02] MEDS: Nystatin POWDER 30 GM BOTTLE TP SCH ×3 (07:48→21:23)
[2020-08-02] MEDS: Insulin DETEMIR 100 UNIT/ML X5UNITS SUBQ SCH ×2 (08:39→21:22)
[2020-08-02] MEDS ORDERED: predniSONE 20 MG TABLET PO SCH (11:30)
[2020-08-02] MEDS ORDERED: diazePAM 5 MG TABLET PO PRN (12:02)
[2020-08-02] MEDS: Vancomycin 2,000 MG/520 ML IV.SOLN IVPB SCH (12:02)
[2020-08-02] MEDS ORDERED: Nystatin POWDER 30 GM BOTTLE TP PRN (12:02)
[2020-08-02 19:00] VITALS: BP 139/80
[2020-08-02] MEDS ORDERED: Ziprasidone 80 MG CAPSULE PO SCH (21:00)
[2020-08-02] MEDS ORDERED: Budesonide/Formoterol 80/4.5 1 PUFF INH IH SCH (22:00)
[2020-08-03] MEDS ORDERED: LEVOTHYROXINE SODIUM 200 MCG PO SCH (09:00)
[2020-08-03] MEDS ORDERED: Furosemide 40 MG TABLET PO SCH (09:00)
[2020-08-03] MEDS ORDERED: polyethylene glycoL 3350 17 GM POWD.PACK PO SCH (09:00)
[2020-08-03] MEDS ORDERED: Loratadine 10 MG TABLET PO SCH (09:00)
[2020-08-03] MEDS ORDERED: Ziprasidone 20 MG CAPSULE PO SCH (09:00)
== END 2020-08-02 23:26 | disposition left against medical advice (07) | DRG 871 ==
LOC: 3ANU 10:05 → EMEROOARM 10:05 → SUATTDRO 13:21 → 3ANU 14:46
PROVIDERS: ADMIT Student in an Organized Health Care Education/Training Program; ATTEND Internal Medicine

== ENCOUNTER 2021-09-28 19:22 | Inpatient (IN) ==
[2021-09-28 20:06] LABS: Bilirubin,Urine Negative (Negative); Blood,Urine Negative (Negative); Clarity,Urine Turbid (Clear); Color,Urine Light-Yellow (Yellow); Glucose,Urine (UA) Normal (Normal); Ketones,Urine Negative (Negative); Leukocyte Esterase,Urine Negative (Negative); Mucus,Urine Few per lpf (None-Few); Nitrite,Urine Negative (Negative); PH,Urine 8.5 pH Units (5.0-8.0); Protein,Urine Trace mg/dL (Neg-Trace); RBC,Urine 0-3 per hpf (0-3); Squamous Epithelial Cell,Urine Few per hpf (None-Few); Urobilinogen,Urine Normal (Normal); WBC,Urine 0-3 per hpf (0-3)
[2021-09-28 20:26] LABS: Influenza A PCR Negative (Negative); Influenza B PCR Negative (Negative); Resp. Syncytial Virus PCR Negative (Negative)
[2021-09-28 20:28] LABS: SARS-CoV-2 by PCR (In House) Negative (Negative)
[2021-09-28 22:05] LABS: Basophils % 0.3 %; Eosinophils # 0.2 K/mcL (0.0-0.6); Eosinophils % 3.3 %; Hematocrit 38.4 % (37.5-50.1); Hemoglobin 12.9 g/dL (12.9-16.9); Immature Granulocytes % 0.7 % (0-4); Lymphocytes # 1.1 K/mcL (0.6-4.6); Lymphocytes % 16.1 %; Mean Corpuscular HGB Conc 33.6 g/dL (31.6-35.5); Mean Corpuscular Hemoglobin 31.1 pg (28.0-33.3); Mean Corpuscular Volume 92.5 fL (83.0-100.0); Mean Platelet Volume 8.6 fL (9.4-12.4); Monocytes # 0.5 K/mcL (0.0-1.3); Monocytes % 6.6 %; Neutrophils # 5.1 K/mcL (1.6-8.9); Platelet Count 186 K/mcL (140-400); Red Blood Count 4.15 M/mcL (4.19-5.50); Red Cell Distribution Width 14.2 % (11.5-14.5)
[2021-09-28] MEDS ORDERED: Ipratropium/Albuterol Neb 3 ML IH ONE (22:17)
[2021-09-28 22:29] LABS: BUN/Creatinine Ratio 19 (6-26); Blood Urea Nitrogen 19 mg/dL (6-20); Calcium 9.5 mg/dL (8.6-10.3); Carbon Dioxide 26 mEq/L (23-29); Chloride 103 mEq/L (98-107); Glucose 70 mg/dL (70-105); Osmolality,Calculated 287 (280-300); Potassium 3.5 mEq/L (3.5-5.1); Sodium 138 mEq/L (136-145); eGFR For African Americans > 60 (> 60); eGFR For Non-African Americans > 60 (> 60)
[2021-09-28 22:30] LABS: Troponin I < 0.03 ng/mL (< 0.04)
[2021-09-28] MEDS ORDERED: *HR* LORazepam 2 MG/ML VIAL IVP ONE (23:53)
[2021-09-28] MEDS ORDERED: Albuterol 2.5 MG/3 ML NEBULIZER IH ONE (23:54)
[2021-09-29 00:20] LABS: VBG HCO3 26 mEq/L (21-27); VBG PCO2 37 mmHg (41-51); VBG PH 7.45 pH Units (7.32-7.42); VBG PO2 95 mmHg (25-50)
[2021-09-29] MEDS ORDERED: Iopamidol - 370 500 ML MLS IVP ONE (01:12)
[2021-09-29] MEDS ORDERED: Melatonin 3 MG TABLET PO PRN (03:13)
[2021-09-29] MEDS ORDERED: Naloxone 0.4 MG/ML INJ IVP PRN (03:13)
[2021-09-29] MEDS ORDERED: Ondansetron ODT 4 MG TAB.RAPDIS SL PRN (03:13)
[2021-09-29] MEDS ORDERED: diazePAM 5 MG TABLET PO PRN (03:38)
[2021-09-29] MEDS ORDERED: *HR* Dextrose 50 % in Water (Syg) 50 ML SYRINGE IVP PRN (03:42)
[2021-09-29] MEDS ORDERED: Dextrose Gel 15 GM/37.5 ML TUBE PO PRN ×2 (03:42)
[2021-09-29] MEDS ORDERED: D5% in Water 1,000 ML IVC PRN (03:42)
[2021-09-29] MEDS ORDERED: Insulin LISPRO 300 UNITS/3 ML VIAL SUBQ SCH ×2 (06:00→21:00)
[2021-09-29] MEDS: Nystatin POWDER 30 GM BOTTLE TP SCH ×4 (06:23→21:40)
[2021-09-29] MEDS: Pregabalin 75 MG CAPSULE PO SCH ×3 (09:13→21:22)
[2021-09-29] MEDS ORDERED: Ziprasidone 20 MG CAPSULE PO ONE (09:44)
[2021-09-29] MEDS ORDERED: Perflutren Lipid Microsphere 1.3 ML in 0.9 % Sodium Chloride 8.7 ML IVP PRN (11:23)
[2021-09-29] MEDS ORDERED: Nystatin POWDER 30 GM BOTTLE TP PRN (11:33)
[2021-09-29] MEDS: Insulin LISPRO 300 UNITS/3 ML VIAL SUBQ SCH ×2 (12:38→17:20)
[2021-09-29] MEDS: Budesonide/Formoterol 80/4.5 1 PUFF INH IH SCH (19:50)
[2021-09-29] MEDS ORDERED: rOPINIRole 1 MG TABLET PO SCH (21:00)
[2021-09-29] MEDS: Ziprasidone 80 MG CAPSULE PO SCH (21:22)
[2021-09-29] MEDS: ROPINIROLE PO SCH (21:40)
[2021-09-30] MEDS: Budesonide/Formoterol 80/4.5 1 PUFF INH IH SCH ×2 (07:41→19:45)
[2021-09-30] MEDS: Pregabalin 75 MG CAPSULE PO SCH ×3 (07:45→20:38)
[2021-09-30] MEDS: Ziprasidone 20 MG CAPSULE PO SCH (07:45)
[2021-09-30] MEDS: Furosemide 40 MG TABLET PO SCH (07:45)
[2021-09-30] MEDS: Loratadine 10 MG TABLET PO SCH (07:46)
[2021-09-30] MEDS: Insulin LISPRO 300 UNITS/3 ML VIAL SUBQ SCH ×3 (07:46→16:24)
[2021-09-30] MEDS: polyethylene glycoL 3350 17 GM POWD.PACK PO SCH (07:47)
[2021-09-30] MEDS: Nystatin POWDER 30 GM BOTTLE TP SCH ×3 (07:48→20:39)
[2021-09-30] MEDS: Ketoconazole 2% CRM 15 GM TUBE TP SCH (09:33)
[2021-09-30 13:30] LABS: Basophils % 0.2 %; Eosinophils # 0.2 K/mcL (0.0-0.6); Eosinophils % 3.3 %; Hematocrit 36.1 % (37.5-50.1); Hemoglobin 11.6 g/dL (12.9-16.9); Immature Granulocytes % 0.4 % (0-4); Lymphocytes # 0.6 K/mcL (0.6-4.6); Lymphocytes % 13.7 %; Mean Corpuscular HGB Conc 32.1 g/dL (31.6-35.5); Mean Corpuscular Hemoglobin 30.5 pg (28.0-33.3); Mean Platelet Volume 8.7 fL (9.4-12.4); Monocytes # 0.3 K/mcL (0.0-1.3); Monocytes % 6.6 %; Neutrophils # 3.4 K/mcL (1.6-8.9); Platelet Count 146 K/mcL (140-400); Red Cell Distribution Width 14.1 % (11.5-14.5); Segmented Neutrophils % 75.8 %; White Blood Count 4.5 K/mcL (4.3-11.1)
[2021-09-30 14:01] LABS: BUN/Creatinine Ratio 15 (6-26); Blood Urea Nitrogen 15 mg/dL (6-20); Calcium 8.9 mg/dL (8.6-10.3); Carbon Dioxide 27 mEq/L (23-29); Chloride 102 mEq/L (98-107); Glucose 234 mg/dL (70-105); Magnesium 1.6 mg/dL (1.6-2.6); Osmolality,Calculated 294 (280-300); Potassium 3.7 mEq/L (3.5-5.1); Sodium 138 mEq/L (136-145); eGFR For African Americans > 60 (> 60); eGFR For Non-African Americans > 60 (> 60)
[2021-09-30] MEDS: ROPINIROLE PO SCH (20:38)
[2021-09-30] MEDS: Ziprasidone 80 MG CAPSULE PO SCH (20:38)
[2021-09-30] MEDS: Insulin DETEMIR 100 UNIT/ML X5UNITS SUBQ SCH (20:38)
[2021-10-01 05:45] LABS: Basophils % 0.2 %; Eosinophils # 0.2 K/mcL (0.0-0.6); Eosinophils % 3.9 %; Immature Granulocytes % 0.7 % (0-4); Lymphocytes # 0.7 K/mcL (0.6-4.6); Lymphocytes % 16.7 %; Mean Corpuscular HGB Conc 32.4 g/dL (31.6-35.5); Mean Corpuscular Hemoglobin 30.8 pg (28.0-33.3); Mean Corpuscular Volume 95.1 fL (83.0-100.0); Mean Platelet Volume 9.4 fL (9.4-12.4); Monocytes # 0.3 K/mcL (0.0-1.3); Monocytes % 7.7 %; Neutrophils # 2.9 K/mcL (1.6-8.9); Platelet Count 139 K/mcL (140-400); Red Blood Count 3.89 M/mcL (4.19-5.50); Red Cell Distribution Width 14.2 % (11.5-14.5); Segmented Neutrophils % 70.8 %; White Blood Count 4.1 K/mcL (4.3-11.1)
[2021-10-01 06:13] LABS: BUN/Creatinine Ratio 17 (6-26); Blood Urea Nitrogen 16 mg/dL (6-20); Calcium 8.7 mg/dL (8.6-10.3); Carbon Dioxide 27 mEq/L (23-29); Chloride 103 mEq/L (98-107); Glucose 239 mg/dL (70-105); Magnesium 1.7 mg/dL (1.6-2.6); Osmolality,Calculated 297 (280-300); Potassium 3.7 mEq/L (3.5-5.1); Sodium 139 mEq/L (136-145); eGFR For African Americans > 60 (> 60); eGFR For Non-African Americans > 60 (> 60)
[2021-10-01] MEDS: Budesonide/Formoterol 80/4.5 1 PUFF INH IH SCH (07:26)
[2021-10-01] MEDS: Insulin LISPRO 300 UNITS/3 ML VIAL SUBQ SCH ×3 (07:45→17:13)
[2021-10-01] MEDS: Ziprasidone 20 MG CAPSULE PO SCH (09:32)
[2021-10-01] MEDS: Loratadine 10 MG TABLET PO SCH (09:32)
[2021-10-01] MEDS: Furosemide 40 MG TABLET PO SCH (09:33)
[2021-10-01] MEDS: polyethylene glycoL 3350 17 GM POWD.PACK PO SCH (09:33)
[2021-10-01] MEDS: Insulin DETEMIR 100 UNIT/ML X5UNITS SUBQ SCH (09:33)
[2021-10-01] MEDS: Pregabalin 75 MG CAPSULE PO SCH ×2 (09:33→15:00)
[2021-10-01] MEDS: Ipratropium/Albuterol Neb 3 ML IH SCH ×2 (10:06→15:44)
[2021-10-01] MEDS: Ketoconazole 2% CRM 15 GM TUBE TP SCH (10:29)
[2021-10-01] MEDS: Nystatin POWDER 30 GM BOTTLE TP SCH ×2 (10:29→15:00)
[2021-10-01 10:40] LABS: Angiotensin Converting Enzyme 92 U/L (16-85)
[2021-10-01 15:59] VITALS: BP 131/65; PULSE 73; TEMP 98.5; O2SAT 94
[2021-10-02 10:09] LABS: ANA IgG by ELISA NONE DETECTED (None Detected)
[2021-10-02 10:13] LABS: Serine Protease-3 Antibody 5 AU/mL (0-19)
== END 2021-10-01 17:42 | disposition home health service (06) | DRG 206 ==
LOC: EMEROOARM 19:22 → 2ANU 19:22 → SUATTDRO 09-29 02:48 → 2ANU 09-29 03:38 → SUATTDRO 09-30 14:00
PROVIDERS: ADMIT Internal Medicine; ATTEND Internal Medicine